=== PATIENT | female | born 1950 | race Caucasian/White ===

== ENCOUNTER 2023-06-16 09:59 | Outpatient (RCR) | payer MEDICARE, OTHER, SELFPAY | END 2023-06-16 23:59 | disposition home or self-care (01) | LOC: RPT 09:59 | PROVIDERS: ATTENDING PHYSICIAN Student in an Organized Health Care Education/Training Program | DX: R42 Dizziness and giddiness (principal) | CPT/HCPCS: 97112; 97163; 97530 ==

== ENCOUNTER 2023-11-26 18:57 | Inpatient (IN) | payer MEDICARE, OTHER, SELFPAY ==
[2023-11-26 11:16] VITALS: BP 136/72
[2023-11-26 11:47] VITALS: BMI 37.0
[2023-11-26 12:20] LABS: % Basophils 0.3 % (0-2); % Eosinophils 0.1 % (0-6); % Immature Granulocytes 0.4 % (0-0.5); % Lymphocytes 9.3 % (20.5-51.1); % Monocytes 10.2 % (1.7-9.3); % Neutrophils 79.7 % (42.2-75.2); Absolute Basophils 0.1 10^3/uL (0-0.2); Absolute Immature Granulocytes 0.1 10^3/uL (0-0.05); Absolute Lymphocytes 1.5 10^3/uL (1.2-3.4); Absolute Monocytes 1.6 10^3/uL (0.1-0.6); Absolute Neutrophils 12.6 10^3/uL (1.4-6.5); Hematocrit 41.5 % (37.0-47.0); Hemoglobin 14.6 g/dL (12.0-16.0); Mean Corp Hgb Conc. 35.2 g/dL (33.0-37.0); Mean Corpuscular Hgb 30.9 pg (27.0-31.0); Mean Corpuscular Volume 87.9 fL (81.0-99.0); Mean Platelet Volume 11.4 fL (7.4-10.4); Nucleated Red Blood Cells % 0 %; Platelet Count 197 10^3/uL (130-400); Red Blood Cell Count 4.72 10^6/uL (4.20-5.40); Red Cell Dist. Width 13.2 % (11.5-14.5); White Blood Cell Count 15.8 10^3/uL (4.8-10.8)
[2023-11-26 12:27] LABS: ALT (SGPT) 25 U/L (0-35); AST (SGOT) 33 U/L (14-36); Albumin 3.9 g/dl (3.5-5.0); Alkaline Phosphatase 84 U/L (38-126); Blood Urea Nitrogen 22 mg/dl (7-17); Calcium 8.9 mg/dl (8.4-10.2); Carbon Dioxide 28 mmol/L (22-30); Chloride 99 mmol/L (98-107); Creatine Phosphokinase 66 U/L (30-135); Estimated Creatinine Clearance 69 ml/min; Glucose 147 mg/dl (70-99); Potassium 4.5 mmol/L (3.5-5.1); Sodium 133 mmol/L (135-145); Total Bilirubin 1.1 mg/dl (0.2-1.3); Total Protein 6.3 g/dl (6.3-8.2); eGFR > 60.00
--- NOTE | 2023-11-26 12:44 | ED.GENMED ---
History of Present Illness
General
Chief Complaint: Urinary Symptoms
Source: patient and records
Exam Limitations: none
Time Seen by Provider: 11/26/23 11:28
Nursing documentation reviewed up to this point in time: agreed with
Travel History
Have you had any contact with someone who has COVID-19?: No
Do you have any symptoms of coronavirus? Fever > 100 degrees, chills, cough, shortness of breath, sore throat, loss of taste or smell, muscle aches, or headache?: No
History of Present Illness
History of Present Illness:
73-year-old female with a past medical history of hypertension, hyperlipidemia, diabetes who presents to the emergency room for evaluation of fever, body aches and cloudy urine. She says that she has a history of frequent UTIs particular for the
past year and is concerned that she could have 1 again. She reports that she noticed that her urine was getting darker and cloudy here a few days ago. Over the past day or 2 she noticed that she started to have fever and achiness. She denies any
dysuria or change in urinary frequency. She denies any incontinence of urine. She does have urgency but this is a chronic issue. She denies any abdominal pain or flank pain. She denies any nausea, vomiting, diarrhea. She denies any URI
symptoms. She denies any cough or shortness of breath, chest pain. She denies any other complaints.
Past History
Past History
ED Past Medical History: HTN, Hypercholesterolemia, NIDDM and Other (kidney stones, fever)
ED Past Surgical History: Gynecological (Hysterectomy ) and Orthopedic (Right knee replacement )
Social History
Tobacco: Former smoker
Alcohol: Occasional
Drug: None
Living: with family
Family History
Family History: Other (no significant)
Review of Systems
Review of Systems
All Other Systems: ROS reviewed and negative except as documented in HPI and ROS
Constitutional: Reports fever, fatigue and chills
EENT: Denies sore throat or runny nose
Respiratory: Denies cough or trouble breathing
Cardiac: Denies chest pain or palpitations
ABD/GI: Denies abdominal pain, nausea, vomiting or diarrhea
: Reports urgency and dark urine; Denies dysuria, frequency, flank pain or incontinence
Musculoskeletal: Denies neck pain or back pain
Neurological: Denies headache, weakness or numbness
Phy Exam
Physical Exam
Physical Exam:
General: Awake, alert; no acute distress
Head: Normocephalic, atraumatic
Eyes: Conjunctiva normal, pupils equal round and reactive to light bilaterally
Throat: Airway intact, handling secretions
Neck: Trachea midline, supple without meningismus
Lungs: Clear to auscultation bilaterally, no wheezing, rales, rhonchi
Heart: Regular rate and rhythm, no murmurs, gallops, or rubs
Abd: Soft, non distended, nontender
Back: No CVA tenderness
Neuro: Cranial nerves grossly intact, speech fluid
Skin: no rash
Extremities: No edema in extremities, equal pulses in all extremities
Scores
Heart Failure Risk
Heart Failure Risk Score: Not Applicable
Heart Score for Chest Pain Patients
STEMI patient?: Not applicable
Withdrawal Assessment of Alcohol
Withdrawal Assessment Completed?: Not applicable
Course
Orders/Labs/Results
Orders:
Orders
11/26/23 11:49
CPK [Creatine Phosphokinase] Urgent
Complete Blood Count/With Diff Urgent
Comprehensive Metabolic Panel Urgent
11/26/23 14:26
Urinalysis Reflex To Culture Urgent
Date Specimen was Collected: 11/26/23
Time Specimen was Collected: 14:24
Urine Microscopic Reflex Cult Urgent
Urine Culture Urgent
ELIS Source: U
Specimen Description:
Date Specimen was Collected: 11/26/23
Time Specimen was Collected: 14:24
11/26/23 15:32
CT Abd/pel Without Iv Or Oral Urgent
Comment:
Reason For Exam: UTI--r/o obstruction
11/26/23 15:38
Lactate Level [Lactic Acid] Urgent
Blood Culture Q30M
ELIS Source: Blood/Venous
Specimen Description:
Blood Culture Q30M
ELIS Source: Blood/Venous
Specimen Description:
11/26/23 16:56
CefTRIAXone [Rocephin] 1,000 mg IV NOW STA
11/26/23 17:12
Acetaminophen [Tylenol] 1,000 mg PO NOW STA
11/26/23 17:19
NSS 500mL Bolus over 1 hr 0.9% Sodium Chloride 500 ml [Nss] 500 ml IV BOLUS
Ondansetron Injectable [Zofran] 4 mg IV NOW STA
Abnormal Lab Results
11/26/23 11/26/23 11/26/23
11:49 14:26 17:02
WBC 15.8 H 10^3/uL
(4.8-10.8)
MPV 11.4 H fL
(7.4-10.4)
Abs Immat Gran (auto) 0.1 H 10^3/uL
(0-0.05)
Absolute Neuts (auto) 12.6 H 10^3/uL
(1.4-6.5)
Absolute Monos (auto) 1.6 H 10^3/uL
(0.1-0.6)
Neutrophils % 79.7 H %
(42.2-75.2)
Lymphocytes % 9.3 L %
(20.5-51.1)
Monocytes % 10.2 H %
(1.7-9.3)
Sodium 133 L mmol/L
(135-145)
BUN 22 H mg/dl
(7-17)
Glucose 147 H mg/dl
(70-99)
Urine Ketones 1+ A
(Negative)
Ur Occult Blood Reflex 3+ A
(Negative)
Urine Nitrite (Reflex) Positive A
(Negative)
Leukocyte Esterase Rfl 2+ A
(Negative)
Urine RBC 7-10 A /HPF
(0-2)
Urine WBC (Reflex) 26-30 A /HPF
(0-5)
Urine Bacteria (Reflex) Many A
(Negative)
POC Glucose 115 H mg/dl
(70-99)
11/26/23 11:49
11/26/23 11:49
Vital Signs
Initial and Last Documented VS:
Initial Vital Signs
Temp Pulse Resp BP Pulse Ox
37.9 C 105 18 136/72 98
11/26/23 11:16 11/26/23 11:16 11/26/23 11:16 11/26/23 11:16 11/26/23 11:16
Last Documented Vital Signs
Temp Pulse Resp BP Pulse Ox
39.2 C H 108 18 134/83 97
11/26/23 17:06 11/26/23 17:06 11/26/23 11:16 11/26/23 17:06 11/26/23 17:06
MDM/Problems Addressed
Differential Diagnosis Includes:
UTI, viral syndrome, pneumonia less likely with clear lungs and normal pulse ox
MDM/Problems Addressed:
73-year-old female with history as above including recurrent UTIs presents for evaluation of dark cloudy urine, fatigue and achiness associated with fever. She is tachycardic with low-grade temp here 37.9 �C. Vital signs otherwise normal.
Physical exam as above. Plan to place an IV check labs including a CBC and a CMP. Will check CPK. Will send a urinalysis. Will reassess after the above.
Patient spiked fever to 102 �F. Will give some Tylenol. Initial labs reviewed she has a leukocytosis to 15.8. Her CMP shows no clinically significant abnormalities. Urinalysis is positive for infection with bacteria and pyuria. She does have
history of sepsis and bacteremia from UTI in the past and she has multiple SIRS criteria concerning for sepsis. Added on lactate and blood cultures. She has no flank pain or back pain but she has a history of septic kidney stone in the past we
will send for a CT in an abundance of caution to rule out stone. I think patient warrants admission for inpatient treatment of her UTI�will treat with IV antibiotics. Case discussed with hospitalist for admission.
*Pulse Oximetry
Patient hypoxic: no
*Critical Care Note
Total Time (30-74mins, 75-104mins- exclusive of procedures): Not Applicable
Data Reviewed
Review of Other/Old Records Reveals: Labs, Records and Other (Prior cultures)
Source: patient and records
Patient Management
Discussion with other providers: Hospitalist (Discussed with hospitalist)
Escalation/DeEscalation of care consider admission/obs:
Admission indicated
ED Attending Note
-
Portions of this chart may have been created with voice recognition software.� Occasional wrong word or��sound alike� substitutions may have occurred due to the inherent limitations of voice recognition software.
Discharge Plan
Departure
Patient Disposition: Admit
Date of Disposition: 11/26/23
Time of Disposition: 17:17
Admit to doctor: Kenny
Presentation/result/management discussed w/ accepting MD/DO: Hospitalist
Discharge Problem:
Acute UTI, Sepsis
Prescriptions:
No Action
aspirin 81 MG tablet,delayed release (DR/EC)
81 mg PO QPM
metformin 500 mg Tablet
500 mg PO BID
duloxetine 30 mg Capsule,Delayed Release(Dr/Ec)
30 mg PO BID
Myrbetriq 50 mg Tablet Extended Release 24 Hr
50 mg PO QPM
multivitamin Tablet
1 tab PO DAILY
ascorbic acid (vitamin C) [Vitamin C] 500 mg Tablet
500 mg PO QPM
Glucosamine Chondroitin 550-30-1 mg Capsule
1 cap PO DAILY
meloxicam 15 mg Tablet
15 mg PO DAILY
melatonin 10 mg Tablet
10 mg PO HS PRN (Reason: sleep)
gabapentin 600 mg Tablet
900 mg PO HS
acetaminophen-codeine 300-30 mg Tablet
1 tab PO HS
Patient Comments:
05/30/2023, patient filled this medication on 03/22/2023 for 60 tablets according to PDMP.
simvastatin 40 mg Tablet
40 mg PO QPM
conjugated estrogens 0.625 mg/gram Cream
0.3125 mg VAGINAL SUTH
cranberry 400 mg Capsule
400 mg PO QPM
calcium carb-magnesium carb,ox 200 mg calcium- 100 mg Tablet,Chewable
1 tab PO QPM
Ozempic 0.25 mg or 0.5 mg (2 mg/3 mL) Pen Injector
0.5 mg SC WE
meclizine 12.5 mg Tablet
12.5 mg PO Q8HPRN PRN (Reason: dizzy) Qty: 15 0RF
lisinopril 10 mg Tablet
5 mg PO DAILY Qty: 0 0RF
Patient Comments:
05/30/2023, patient is unsure if they take this medication in the morning or in the evening. They state that they take this medication 'once a day'.
Rx Instructions:
Take in mornings
Referrals:
Heather oRjas DO [Family Provider] -
Interventions
Interventions:
*Risk Screen - Suicide Last Done: 11/26/23 11:47
*General Assessment Last Done: 11/26/23 11:47
*Neglect/Abuse Screening Last Done: 11/26/23 11:47
ED- Fall Risk Assessment Last Done: 11/26/23 11:47
*ED COVID-19 Vaccine History Last Done: 11/26/23 11:16
ED-Female Genitourinary Assessment Last Done: 11/26/23 11:47
Discharge Date and Time
Print Language: UZBEK
[2023-11-26 15:22] LABS: Urine Albumin Trace (Neg - Trace); Urine Bilirubin Negative (Negative); Urine Character Slightly Cloudy (Clear); Urine Color Yellow; Urine Glucose Negative (Negative); Urine Ketone 1+ (Negative); Urine Leukocyte 2+ (Negative); Urine Nitrite Positive (Negative); Urine Occult Blood 3+ (Negative); Urine Urobilinogen Negative (Neg - 1+)
[2023-11-26 16:08] LABS: Lactic Acid 1.5 mmol/L (0.7-2.0)
[2023-11-26 16:10] LABS: Urine Mucus Few
[2023-11-26 16:11] LABS: Urine Bacteria Many (Negative); Urine White Cell 26-30 /HPF (0-5)
[2023-11-26] MEDS: ROCEPHIN 1000 MG IV (17:03)
[2023-11-26 17:04] LABS: Glucose - Point of Care 115 mg/dl (70-99)
[2023-11-26 17:06] VITALS: BP 134/83
[2023-11-26] MEDS: TYLENOL 1000 MG PO (17:14)
[2023-11-26] MEDS: ZOFRAN 4 MG IV (17:23)
[2023-11-26] MEDS: NSS 500 IV (17:24)
[2023-11-26 17:29] VITALS: BP 126/80
--- NOTE | 2023-11-26 17:57 | HPS.HSE ---
Family Physician
-
Family Physician: Monisha Rojas DO
Chief Complaint
-
urinary symptoms
History of Present Illness
73-year-old female past medical history of frequent UTIs, history of obstructive ureteral stone and R pyelonephritis, hypertension, diabetes, restless leg syndrome, hyperlipidemia, overactive bladder, depression, presenting for fever, fatigue, body
aches and cloudy/dark urine for the past few days. She denied pain with urination or urinary frequency. He denied incontinence. Denies abdominal pain or flank pain. Denied nausea or vomiting or diarrhea. Denies shortness of breath or cough or
chest pain or upper respiratory symptoms.
Medical History
Past Medical History
Past Medical History: Reports Other (frequent UTIs, history of obstructive ureteral stone, hypertension, diabetes, restless leg syndrome, hyperlipidemia, overactive bladder, depression,)
Past Surgical History: Reports Other (Gynecological (Hysterectomy ) and Orthopedic (Right knee replacement ))
Social History
Tobacco: Non-smoker
Alcohol: Occasional
Drug: None
Family History
Family History: Not pertinent
Allergies / Home Medications
Allergies reflects when Allergies were last updated in [facility].
Home Medications with original date entered in [facility]
Allergy/Medication List:
Allergies
Allergy/AdvReac Type Severity Reaction Status Date / Time
morphine Allergy NAUSEA/VOMI Verified 11/26/23 11:17
TING
Home Medications
aspirin 81 mg tablet,delayed release 81 mg PO QPM Blood Clot Prevention/Tx 10/24/18
duloxetine 30 mg capsule,delayed release 30 mg PO BID Mental Health/Anxiety 03/16/23
metformin 500 mg tablet 500 mg PO BID Diabetes 03/16/23
mirabegron 50 mg tablet,extended release 24 hr (Myrbetriq) 50 mg PO QPM Urinary Issue 03/16/23
ascorbic acid (vitamin C) 500 mg tablet (Vitamin C) 500 mg PO QPM 04/04/23
glucosamine sulf dipot chlr,msm,chond 550 mg-C 30 mg-baldo 1 mg capsule (Glucosamine Chondroitin) 1 cap PO QPM 04/04/23
multivitamin 1 tab PO DAILY 04/04/23
melatonin 10 mg tablet 10 mg PO HS PRN sleep 04/10/23
meloxicam 15 mg tablet 15 mg PO DAILY 04/10/23
acetaminophen 300 mg-codeine 30 mg tablet 1 tab PO BID PRN moderate pain 05/30/23
conjugated estrogens 0.625 mg/gram vaginal cream 0.3125 mg vaginal SUTH 05/30/23
gabapentin 600 mg tablet 900 mg PO HS 05/30/23
simvastatin 40 mg tablet 40 mg PO QPM 05/30/23
cranberry fruit 400 mg tablet 400 mg PO QPM 11/26/23
lisinopril 5 mg tablet 5 mg PO DAILY 11/26/23
meclizine 12.5 mg tablet 12.5 mg PO Q8HPRN PRN dizziness 11/26/23
semaglutide 1 mg/dose (4 mg/3 mL) subcutaneous pen injector (Ozempic) 1 mg SC FR 11/26/23
Review of Systems
-
History Source: Patient
A 12 point ROS was completed and negative except as noted: Yes
Constitutional: Reports No Symptoms
EENT: Reports No Symptoms
Respiratory: Reports No Symptoms
Cardiac: Reports No Symptoms
Abdomen/GI: Reports No Symptoms
: Reports See HPI
Musculoskeletal: Reports No Symptoms
Skin: Reports No Symptoms
Neurological: Reports No Symptoms
Endocrine: Reports No Symptoms
Hematologic/Lymphatic: Reports No Symptoms
Psych: Reports No Symptoms
Physical Exam
Vital Signs
Vital Signs
Temp Pulse Resp BP Pulse Ox
102.5 F H 108 22 126/80 97
11/26/23 17:06 11/26/23 17:30 11/26/23 17:30 11/26/23 17:29 11/26/23 17:06
Physical Exam
General: Well Developed, Well Nourished and No Apparent Distress
HEENT: NormoCephalic, Moist mucous membranes and Atraumatic
Respiratory: Clear
Cardiac: S1/S2 and Regular Rhythm; No Murmur or Rub
GI: Soft, Non Tender, Non Distended and Normal Bowel Sounds; No Organomegaly
Rectal: Deferred by Provider
Musculoskeletal: No Clubbing, No Cyanosis and No Edema
Skin: No Rash
Neuro: Nonfocal/grossly intact
Laboratory Results
-
11/26/23 11:49
11/26/23 11:49
Laboratory Results
Lactic Acid 1.5 mmol/L (0.7-2.0) 11/26/23 15:38
Total Bilirubin 1.1 mg/dl (0.2-1.3) 11/26/23 11:49
AST 33 U/L (14-36) 11/26/23 11:49
ALT 25 U/L (0-35) 11/26/23 11:49
Alkaline Phosphatase 84 U/L (38-126) 11/26/23 11:49
Data Reviewed
-
Lab Data: Labs Reviewed by me
Old Records: Reviewed
Impression/Plan
-
IMPRESSION:
PLAN:
# Sepsis (fever, leukocytosis, tachycardia) secondary to UTI
# History of frequent UTIs
-UA positive for UTI
-Check urine, blood cultures
-Prior urine cultures have grew Klebsiella multiple times which has been pansensitive except to ampicillin, as well as Enterococcus once
-IV fluids
-Ceftriaxone
-CT abdomen pelvis pending given history of obstructive ureteral stone
History of right-sided pyelonephritis secondary to obstructive ureteral stone
Overactive bladder
-Continue Myrbetriq
Essential hypertension
-Continue lisinopril
-Continue prophylactic aspirin
History of dizziness/orthostatic hypotension
-Continue as needed meclizine
Restless leg syndrome
History of arthralgias
-Continue meloxicam, gabapentin
Type 2 diabetes
-Hold metformin
-Insulin sliding scale
-Normally on Ozempic
Hyperlipidemia
-Continue statin
Anxiety/depression
-Continue duloxetine
Full code
DVT prophylaxis- heparin
Regular diet
--- NOTE | 2023-11-26 20:00 | PTCARENOTE ---
Received pt from ED- stand and pivot to bed- pt complaints of being dizzy- See MAR. No complaints of pain
[2023-11-26 21:19] VITALS: BP 174/102; BMI 36.1
[2023-11-26 21:27] LABS: Glucose - Point of Care 203 mg/dl (70-99)
[2023-11-26] MEDS: HEPARIN 5000 UNITS SC (21:57)
[2023-11-26] MEDS: CYMBALTA DELAYED RELEASE 30 MG PO (21:57)
[2023-11-26] MEDS: NSS 1000 IV (21:57)
[2023-11-26] MEDS: ASPIR LOW (ENTERIC COATED) 81 MG PO (21:57)
[2023-11-26] MEDS: DETROL LA 4 MG PO (21:58)
[2023-11-26] MEDS: NEURONTIN 900 MG PO (21:58)
[2023-11-26] MEDS: MELATONIN 10 MG PO (21:58)
[2023-11-26] MEDS: VITAMIN C 500 MG PO (21:58)
[2023-11-26] MEDS: LIPITOR 20 MG PO (21:58)
[2023-11-26] MEDS: ANTIVERT 12.5 MG PO (21:58)
[2023-11-26 23:30] VITALS: BP 129/70
[2023-11-27] VITALS (11 sets, daily range): BP systolic 84–162; BP diastolic 44–83
[2023-11-27] MEDS: NSS 1000 IV ×2 (05:57→17:49)
[2023-11-27] MEDS: TYLENOL 650 MG PO ×2 (06:17→21:24)
[2023-11-27] MEDS: ANTIVERT 12.5 MG PO ×2 (06:17→21:23)
[2023-11-27 07:34] LABS: % Basophils 0.2 % (0-2); % Eosinophils 0.5 % (0-6); % Immature Granulocytes 0.5 % (0-0.5); % Lymphocytes 8.7 % (20.5-51.1); % Neutrophils 80.1 % (42.2-75.2); Absolute Eosinophils 0.1 10^3/uL (0-0.7); Absolute Immature Granulocytes 0.1 10^3/uL (0-0.05); Absolute Lymphocytes 1.1 10^3/uL (1.2-3.4); Absolute Monocytes 1.3 10^3/uL (0.1-0.6); Absolute Neutrophils 10.4 10^3/uL (1.4-6.5); Hematocrit 39.8 % (37.0-47.0); Hemoglobin 12.8 g/dL (12.0-16.0); Mean Corp Hgb Conc. 32.2 g/dL (33.0-37.0); Mean Corpuscular Hgb 29.5 pg (27.0-31.0); Mean Corpuscular Volume 91.7 fL (81.0-99.0); Mean Platelet Volume 11.2 fL (7.4-10.4); Nucleated Red Blood Cells % 0 %; Platelet Count 145 10^3/uL (130-400); Red Blood Cell Count 4.34 10^6/uL (4.20-5.40); Red Cell Dist. Width 13.1 % (11.5-14.5)
[2023-11-27 08:00] LABS: ALT (SGPT) 19 U/L (0-35); AST (SGOT) 26 U/L (14-36); Albumin 3.3 g/dl (3.5-5.0); Alkaline Phosphatase 83 U/L (38-126); Blood Urea Nitrogen 16 mg/dl (7-17); Calcium 8.6 mg/dl (8.4-10.2); Carbon Dioxide 26 mmol/L (22-30); Chloride 103 mmol/L (98-107); Estimated Creatinine Clearance 78 ml/min; Glucose 125 mg/dl (70-99); Potassium 4.2 mmol/L (3.5-5.1); Sodium 135 mmol/L (135-145); Total Bilirubin 0.9 mg/dl (0.2-1.3); Total Protein 5.6 g/dl (6.3-8.2); eGFR > 60.00
[2023-11-27 08:02] LABS: Glucose - Point of Care 132 mg/dl (70-99)
[2023-11-27] MEDS: NOVOLOG FLEXPEN-LOW RESISTANCE SC ×2 (08:06→11:42)
[2023-11-27] MEDS: ZESTRIL 5 MG PO (08:13)
[2023-11-27] MEDS: CYMBALTA DELAYED RELEASE 30 MG PO ×2 (08:13→21:22)
[2023-11-27] MEDS: MOBIC 15 MG PO (08:14)
[2023-11-27] MEDS: HEPARIN 5000 UNITS SC ×2 (08:14→21:23)
[2023-11-27] MEDS: THERAGRAN 1 TABLET PO (08:14)
[2023-11-27 09:01] LABS: Glycohemoglobin (HgbA1c) 5.9 % (4.0-5.6)
--- NOTE | 2023-11-27 10:18 | W.PN.HOSP.TC ---
Today's Communication/Plan
-
Continue present course of ceftriaxone
Await blood culture results for now ID
Will get urology input as to CT scan findings as prior obstructive process on the right underwent lithotripsy last year
Continue to monitor leukocytosis
Assessment / Plan
Assessment / Plan
73-year-old female past medical history of frequent UTIs, history of obstructive ureteral stone and R pyelonephritis, hypertension, diabetes, restless leg syndrome, hyperlipidemia, overactive bladder, depression, presenting for fever, fatigue, body
aches and cloudy/dark urine for the past few days. She denied pain with urination or urinary frequency. He denied incontinence. Denies abdominal pain or flank pain. Denied nausea or vomiting or diarrhea. Denies shortness of breath or cough or
chest pain or upper respiratory symptoms.
Past Medical History: Reports Other (frequent UTIs, history of obstructive ureteral stone, hypertension, diabetes, restless leg syndrome, hyperlipidemia, overactive bladder, depression,)
# Sepsis (fever, leukocytosis, tachycardia) secondary to UTI
# History of frequent UTIs
-UA positive for UTI
-Check urine, blood cultures preliminary may be positive
-Prior urine cultures have grew Klebsiella multiple times which has been pansensitive except to ampicillin, as well as Enterococcus once
-IV fluids
-Ceftriaxone
-CT abdomen pelvis :
Approximate 1.3 cm
calculus at the left ureteropelvic junction with mild left renal collecting system dilatation and moderate left perinephric stranding compatible with partial obstructive uropathy. Additional small nonobstructing left renal calculi.
-Prelim results on blood cultures indicate positivity
History of right-sided pyelonephritis secondary to obstructive ureteral stone
Overactive bladder
-Continue Myrbetriq
Essential hypertension
-Continue lisinopril
-Continue prophylactic aspirin
History of dizziness/orthostatic hypotension
-Continue as needed meclizine
Restless leg syndrome
History of arthralgias
-Continue meloxicam, gabapentin
Type 2 diabetes
-Hold metformin
-Insulin sliding scale
-Normally on Ozempic
Hyperlipidemia
-Continue statin
Anxiety/depression
-Continue duloxetine
Full code
DVT prophylaxis- heparin
Regular diet
Anticipated Discharge: Within 24 hours
Subjective/Interval History
-
Date of Service: November 27, 2023
Patient feels well denies any fever chills or flank pain
Objective Data
-
Labs:
Laboratory Results
11/27/23
06:22
WBC 13.0 H
Hgb 12.8
Hct 39.8
Plt Count 145 D
Sodium 135
Potassium 4.2
Chloride 103
Carbon Dioxide 26
BUN 16
Creatinine 0.7
Glucose 125 H
Calcium 8.6
Total Bilirubin 0.9
AST 26
ALT 19
Alkaline Phosphatase 83
Vital Signs:
Vital Signs
Temp Pulse Resp BP Pulse Ox
98.1 F 97 16 132/73 93
11/27/23 07:30 11/27/23 07:30 11/27/23 07:30 11/27/23 07:30 11/27/23 07:30
I&O
11/26/23 11/27/23 11/28/23
06:59 06:59 06:59
Intake Total 480 / 480
Balance 480 / 480
Review of Systems
-
History Source: Patient
Physical Exam
-
General: Well Developed
HEENT: Normocephalic
Respiratory: Clear to Auscultation
Cardiac: Regular Rhythm
GI: Soft and Nontender
Genito-urinary: No Costovertebral Tender
Musculoskeletal: No Clubbing
Psych: Calm
Data Reviewed
-
Total Time Spent with Patient (in minutes): 45
CT Scan: Report Reviewed by me (CT scan results show some perinephric stranding on the left side with a 1.3 cm ureteropelvic junction stone with some hydro-)
Labs: Labs Reviewed by me (Leukocytosis trending down to 13/A1c of 5.9)
[2023-11-27 11:44] LABS: Glucose - Point of Care 205 mg/dl (70-99)
--- NOTE | 2023-11-27 11:44 | W.PN.UPDATE ---
Update Note
Progress Note Update
73F presenting to ED 11/25 with body aches and cloudy urine.
11/25: UA grossly positive for UTI (+nitrites, 26-30 WBCs)
11/25: BCx - prelim positive.
11/25: CTAP w/o IV contrast => 1.3 cm obstructing left UPJ stone w/ non-obstructing left renal stones, left hydronephrosis and perinephric stranding
H/o right ESWL in past for kidney stones.
A/P:
cUTI
Bacteremia
Obstructing left UPJ stone
- Maintain NPO status
- To OR urgently today for cysto + left stent placement
- Continue IV antibiotics pending Cx S/S
D/w Hospitalist.
--- NOTE | 2023-11-27 12:38 | W.IMMPOSTOP ---
Surgical Immed Post Op Note
-
Primary Surgeon: Pascale
Pre-op Diagnosis: cUTI, bacteremia, obstructing left UPJ stone
Post-op Diagnosis: Same
Procedure Performed: cysto + left stent placement
Anesthesia Type: GETA
Specimen / Cultures: None/None
Estimated Blood Loss: Negligible
Drains: 6Fr x 24 cm JJ left ureteral stent
Complications: None
Operative Findings: purulent debris-filled urine in bladder c/w UTI, final KUB and cysto confirming appropriate left stent position
[2023-11-27 12:54] LABS: Glucose - Point of Care 156 mg/dl (70-99)
[2023-11-27] MEDS: DILAUDID 0.25 MG IV (13:39)
--- NOTE | 2023-11-27 14:30 | PTCARENOTE ---
Pt returned from OR. Report from Josefa OWEN. Pt awake, alert and oriented x3. Pt has no c/o pain at this time, received Dilaudid in PACU. Pt VSS 95% on RA. Pt reoriented to room, urinated in bathroom, call gross within reach, plan of care ongoing.
[2023-11-27] MEDS: ROCEPHIN 1000 MG IV (16:23)
[2023-11-27] MEDS: STERILE WATER FOR INJECTION 10 ML IV (16:23)
[2023-11-27 17:20] LABS: Glucose - Point of Care 257 mg/dl (70-99)
[2023-11-27] MEDS: ASPIR LOW (ENTERIC COATED) 81 MG PO (17:38)
[2023-11-27] MEDS: LIPITOR 20 MG PO (17:38)
[2023-11-27] MEDS: DETROL LA 4 MG PO (17:39)
[2023-11-27] MEDS: NOVOLOG FLEXPEN-LOW RESISTANCE 3 UNITS SC (17:39)
[2023-11-27] MEDS: VITAMIN C 500 MG PO (17:39)
[2023-11-27] MEDS: MELATONIN 10 MG PO (21:23)
[2023-11-27] MEDS: NEURONTIN 900 MG PO (21:23)
[2023-11-27 21:26] LABS: Glucose - Point of Care 302 mg/dl (70-99)
[2023-11-27] MEDS: PREMARIN VAGINAL CREAM 1 APPLIC VAG (21:28)
[2023-11-28 03:23] VITALS: BP 141/79
[2023-11-28] MEDS: NSS 1000 IV (03:46)
[2023-11-28 05:31] LABS: Hematocrit 37.5 % (37.0-47.0); Hemoglobin 12.7 g/dL (12.0-16.0); Mean Corp Hgb Conc. 33.9 g/dL (33.0-37.0); Mean Corpuscular Hgb 30.2 pg (27.0-31.0); Mean Corpuscular Volume 89.1 fL (81.0-99.0); Mean Platelet Volume 11.2 fL (7.4-10.4); Platelet Count 174 10^3/uL (130-400); Red Blood Cell Count 4.21 10^6/uL (4.20-5.40); Red Cell Dist. Width 12.8 % (11.5-14.5); White Blood Cell Count 10.8 10^3/uL (4.8-10.8)
[2023-11-28 06:12] LABS: Blood Urea Nitrogen 19 mg/dl (7-17); Calcium 9.2 mg/dl (8.4-10.2); Carbon Dioxide 22 mmol/L (22-30); Chloride 109 mmol/L (98-107); Estimated Creatinine Clearance 78 ml/min; Glucose 250 mg/dl (70-99); Potassium 4.7 mmol/L (3.5-5.1); Sodium 137 mmol/L (135-145); eGFR > 60.00
[2023-11-28 07:35] VITALS: BP 159/92
[2023-11-28 07:35] LABS: Glucose - Point of Care 221 mg/dl (70-99)
[2023-11-28] MEDS: CYMBALTA DELAYED RELEASE 30 MG PO (08:11)
[2023-11-28] MEDS: ZESTRIL 5 MG PO (08:12)
[2023-11-28] MEDS: THERAGRAN 1 TABLET PO (08:12)
[2023-11-28] MEDS: MOBIC 15 MG PO (08:12)
[2023-11-28] MEDS: HEPARIN 5000 UNITS SC (08:13)
[2023-11-28] MEDS: NOVOLOG FLEXPEN-LOW RESISTANCE 2 UNITS SC (08:15)
[2023-11-28] MEDS: TYLENOL 650 MG PO (08:28)
--- NOTE | 2023-11-28 09:53 | W.DS.TRANS ---
DC Summary - Club Attendant
-
Discharge Instructions:
Discharge Diagnosis/Procedures Complicated urinary tract infection
Obstructing left UPJ stone
Status post ureteroscopic and stent
Diet Regular
Activity As tolerated
Driving Restrictions As prior to admission
Instructions:
Stand-Alone Forms:
Changes to Home Medications: Yes
Discharge Medications:
DC Medications w/original date entered in [employer]
aspirin 81 mg tablet,delayed release 81 mg PO QPM Blood Clot Prevention/Tx 10/24/18
duloxetine 30 mg capsule,delayed release 30 mg PO BID Mental Health/Anxiety 03/16/23
metformin 500 mg tablet 500 mg PO BID Diabetes 03/16/23
mirabegron 50 mg tablet,extended release 24 hr (Myrbetriq) 50 mg PO QPM Urinary Issue 03/16/23
ascorbic acid (vitamin C) 500 mg tablet (Vitamin C) 500 mg PO QPM Supplement 04/04/23
glucosamine sulf dipot chlr,msm,chond 550 mg-C 30 mg-baldo 1 mg capsule (Glucosamine Chondroitin) 1 cap PO QPM Supplement 04/04/23
multivitamin 1 tab PO DAILY Supplement 04/04/23
melatonin 10 mg tablet 10 mg PO HS PRN sleep 04/10/23
meloxicam 15 mg tablet 15 mg PO DAILY Pain 04/10/23
acetaminophen 300 mg-codeine 30 mg tablet 1 tab PO BID PRN moderate pain 05/30/23
conjugated estrogens 0.625 mg/gram vaginal cream 0.3125 mg vaginal SUTH Hormonal Agent 05/30/23
gabapentin 600 mg tablet 900 mg PO HS Neurological Condition 05/30/23
simvastatin 40 mg tablet 40 mg PO QPM High Cholesterol 05/30/23
cranberry fruit 400 mg tablet 400 mg PO QPM Supplement 11/26/23
lisinopril 5 mg tablet 5 mg PO DAILY Blood Pressure 11/26/23
meclizine 12.5 mg tablet 12.5 mg PO Q8HPRN PRN dizziness 11/26/23
semaglutide 1 mg/dose (4 mg/3 mL) subcutaneous pen injector (Ozempic) 1 mg SC FR weight loss 11/26/23
cefdinir 300 mg capsule 300 mg PO BID Infection #14 caps 11/28/23
Home Medication Changes
cefdinir 300 mg capsule 300 mg PO BID Infection #14 caps 11/28/23
Pending Results: No
Total time spent discharging patient (in min): 46
[2023-11-28 11:09] VITALS: BP 158/97
--- NOTE | 2023-11-28 11:59 | W.DCSUMMARY ---
Discharge Summary
Discharge Data
Date of Admission: 11/26/23
Date of Discharge: 11/28/23
-
Pending Results: No
Hospital Course
73-year-old female past medical history of frequent UTIs, history of obstructive ureteral stone and R pyelonephritis, she underwent lithotripsy successfully last year and was seen and followed by Dr. Loera on the urology group. Hypertension,
diabetes, restless leg syndrome, hyperlipidemia, overactive bladder, depression, presenting for fever, fatigue, body aches and cloudy/dark urine for the past few days. She denied pain with urination or urinary frequency. He denied incontinence.
Denies abdominal pain or flank pain. Denied nausea or vomiting or diarrhea. Denies shortness of breath or cough or chest pain or upper respiratory symptoms.
Patient was admitted to [facility] and results of his CT imaging exhibiting a approximate 1.3 cm calculus at the left ureteropelvic junction with mild left renal collecting system dilatation and moderate left perinephric stranding compatible with
partial obstructive uropathy. Additional small nonobstructing left renal calculi. She was started on an empiric course of antibiotics at time of admission with cultures of urine and blood sent.
A consultation was placed with the urology service of Dr. Ashraf who felt that the patient should be taken immediately to the OR intervention for relieving her obstructive uropathy with stenting/this was uncomplicated and while awaiting blood
culture results which initially showed suspicion of positive growth patient was observed overnight and did well with resolution of leukocytosis no febrile course and no further abdominal pain. She was continued on ceftriaxone and we obtained final
culture results of noting high suspicion for contaminant of one of the 2 blood cultures and with the other 1 being negative is felt that patient's blood cultures are negative for growth but will be continued to be treated for a complicated urinary
tract infection based on her obstructive uropathy presentation with cefdinir 300 mg twice a day and further follow-up with Dr. Correia in 1 to 2 weeks for preoperative intervention for addressing her stent
Discharge Plan
-
Patient Disposition: Home (Routine Discharge)
Discharge Diagnosis/Procedures: Complicated urinary tract infection
Obstructing left UPJ stone
Status post ureteroscopic and stent
Diet: Regular
Activity: As tolerated
Driving Restrictions: As prior to admission
Referrals:
Robert Ashraf MD [Active] - in less than 1 week (Call for follow-up appointment and stent status)
Patrice Navarro MD [Emergency Provider] - in one to two weeks (Followup with DR Evaristo cao)
Heather Rojas DO [Family Provider] -
Prescriptions:
New
cefdinir 300 mg capsule
300 mg PO BID Qty: 14 0RF
Continued
aspirin 81 MG tablet,delayed release (DR/EC)
81 mg PO QPM
metformin 500 mg Tablet
500 mg PO BID
duloxetine 30 mg Capsule,Delayed Release(Dr/Ec)
30 mg PO BID
mirabegron [Myrbetriq] 50 mg Tablet Extended Release 24 Hr
50 mg PO QPM
multivitamin Tablet
1 tab PO DAILY
ascorbic acid (vitamin C) [Vitamin C] 500 mg Tablet
500 mg PO QPM
Glucosamine Chondroitin 550-30-1 mg Capsule
1 cap PO QPM
meloxicam 15 mg Tablet
15 mg PO DAILY
melatonin 10 mg Tablet
10 mg PO HS PRN (Reason: sleep)
gabapentin 600 mg Tablet
900 mg PO HS
acetaminophen-codeine 300-30 mg Tablet
1 tab PO BID PRN (Reason: moderate pain)
Patient Comments:
11/26/2023: last filled 11/19/23, 60 tabs for 30 days from [facility]
simvastatin 40 mg Tablet
40 mg PO QPM
conjugated estrogens 0.625 mg/gram Cream
0.3125 mg VAGINAL SUTH
lisinopril 5 mg tablet
5 mg PO DAILY
cranberry fruit 400 mg Tablet
400 mg PO QPM
Ozempic 1 mg/dose (4 mg/3 mL) pen injector
1 mg SC FR
meclizine 12.5 mg tablet
12.5 mg PO Q8HPRN PRN (Reason: dizziness)
Discharge Orders:
Discharge Patient (As Directed); Ordered 11/28/23
Ordered By: Roni Delgadillo
Discharge Date and Time
Discharge Date/Time: 11/28/23 11:36
Print Language: PORTUGUESE
== END 2023-11-28 11:36 | disposition home or self-care (01) | DRG 660 ==
LOC: 4 EAST ACU 18:57
PROVIDERS: Surgery; ADMITTING PHYSICIAN Hospitalist; ATTENDING PHYSICIAN Internal Medicine; EMERGENCY PHYSICIAN Emergency Medicine; FAMILY PHYSICIAN Student in an Organized Health Care Education/Training Program
PROC: 0T778DZ Dilation of Left Ureter with Intraluminal Device, Via Natural or Artificial Opening Endoscopic (ICD-10-PCS; 2023-11-27)
DX: N11.1 Chronic obstructive pyelonephritis (principal); N39.0 Urinary tract infection, site not specified; N20.2 Calculus of kidney with calculus of ureter
CPT/HCPCS: 74018; 74176; 76000; 80048; 80053; 81003; 81015; 82550; 82962; 83036; 83605; 85025; 85027; 87040; 87086; 87150; 87205; 96361; 96374; 96375; 99285; C2617

== ENCOUNTER 2023-12-01 22:20 | Inpatient (IN) | payer MEDICARE, OTHER, SELFPAY ==
[2023-12-01 11:35] VITALS: BMI 33.9
[2023-12-01 11:42] VITALS: BP 147/95
[2023-12-01 12:19] LABS: % Basophils 0.5 % (0-2); % Eosinophils 1.9 % (0-6); % Immature Granulocytes 0.6 % (0-0.5); % Lymphocytes 15.6 % (20.5-51.1); % Monocytes 7.2 % (1.7-9.3); % Neutrophils 74.2 % (42.2-75.2); Absolute Eosinophils 0.2 10^3/uL (0-0.7); Absolute Immature Granulocytes 0.1 10^3/uL (0-0.05); Absolute Lymphocytes 1.3 10^3/uL (1.2-3.4); Absolute Monocytes 0.6 10^3/uL (0.1-0.6); Absolute Neutrophils 6.2 10^3/uL (1.4-6.5); Hematocrit 43.6 % (37.0-47.0); Hemoglobin 15.1 g/dL (12.0-16.0); Mean Corp Hgb Conc. 34.6 g/dL (33.0-37.0); Mean Corpuscular Hgb 29.9 pg (27.0-31.0); Mean Corpuscular Volume 86.3 fL (81.0-99.0); Mean Platelet Volume 10.9 fL (7.4-10.4); Nucleated Red Blood Cells % 0 %; Platelet Count 264 10^3/uL (130-400); Red Blood Cell Count 5.05 10^6/uL (4.20-5.40); Red Cell Dist. Width 12.7 % (11.5-14.5); White Blood Cell Count 8.4 10^3/uL (4.8-10.8)
[2023-12-01 12:21] LABS: Urine Albumin 1+ (Neg - Trace); Urine Bilirubin Negative (Negative); Urine Character Slightly Cloudy (Clear); Urine Color Yellow; Urine Glucose Negative (Negative); Urine Ketone 1+ (Negative); Urine Leukocyte 2+ (Negative); Urine Nitrite Negative (Negative); Urine Occult Blood 4+ (Negative); Urine Specific Gravity 1.015 (<1.030); Urine Urobilinogen Negative (Neg - 1+)
[2023-12-01 12:35] LABS: ALT (SGPT) 74 U/L (0-35); AST (SGOT) 88 U/L (14-36); Albumin 4.3 g/dl (3.5-5.0); Alkaline Phosphatase 96 U/L (38-126); Blood Urea Nitrogen 19 mg/dl (7-17); Calcium 10.3 mg/dl (8.4-10.2); Carbon Dioxide 26 mmol/L (22-30); Chloride 101 mmol/L (98-107); Glucose 180 mg/dl (70-99); Potassium 4.5 mmol/L (3.5-5.1); Sodium 137 mmol/L (135-145); Total Bilirubin 0.6 mg/dl (0.2-1.3); Total Protein 6.9 g/dl (6.3-8.2); eGFR > 60.00
[2023-12-01 12:43] LABS: Lactic Acid 1.7 mmol/L (0.7-2.0)
[2023-12-01 13:46] LABS: Urine Bacteria Moderate (Negative); Urine Red Blood Cell 30-40 /HPF (0-2); Urine Squamous Cell >30 /LPF (Few); Urine White Cell 26-30 /HPF (0-5); Urine Yeast Few (Negative)
[2023-12-01 15:32] VITALS: BP 188/97
--- NOTE | 2023-12-01 18:41 | ED.GENMED ---
History of Present Illness
General
Chief Complaint: Weakness
Time Seen by Provider: 12/01/23 18:30
Travel History
Have you had any contact with someone who has COVID-19?: No
Do you have any symptoms of coronavirus? Fever > 100 degrees, chills, cough, shortness of breath, sore throat, loss of taste or smell, muscle aches, or headache?: No
History of Present Illness
History of Present Illness:
Patient is a 73-year-old female with past medical history of hypertension, hyperlipidemia, vertigo, diverticulosis/diverticulitis, thyroid disorder with history of partial thyroidectomy, cataracts, history of hysterectomy, and histroy of frequent
UTIs/history of kidney stones, here today for evaluation of fatigue.
Patient was initially seen on 11/26/2023 for fever, fatigue, body aches, and cloudy/dark urine. Patient underwent CT imaging which revealed a 1.3 cm calculus at the left UVJ with mild left renal collecting system dilatation and moderate left
perinephric stranding compatible with a partial obstructive uropathy. Patient was started on antibiotics. Cultures were sent. Case was discussed with urology and patient was taken for OR intervention for relieving of obstructive uropathy with
stenting along the left side with cystoscopy with Dr. Ashraf. Patient was continued on antibiotics and blood cultures were found to be positive in 1/2 which was thought to be secondary to a contaminant. Urine culture revealed positive for greater
than 100,000 mixed davida. Laboratory stated probable contamination. Patient was ultimately discharged as symptoms improved and was discharged with p.o. cefdinir.
Patient reports feeling generally well at the time of discharge until more recently over the past 2 days she has had increasing fatigue associated with loss of appetite and lightheadedness. She denies abdominal or back pain. No fevers. No pain
with urination. She has more recently noted hematuria. Patient has been taking the antibiotics as directed. No vomiting.
Past History
Past History
ED Past Medical History: HTN, Hypercholesterolemia, NIDDM and Other (kidney stones, fever)
ED Past Surgical History: Gynecological (Hysterectomy ) and Orthopedic (Right knee replacement )
Social History
Tobacco: Former smoker
Alcohol: Occasional
Drug: None
Living: with family
Family History
Family History: Other (no significant)
Review of Systems
Review of Systems
All Other Systems: ROS reviewed and negative except as documented in HPI and ROS
Phy Exam
Physical Exam
Physical Exam:
GENERAL: Alert , in no apparent distress
EYE: pupils equal and reactive
NECK: Supple, no significant adenopathy.
ENT: o/p clr, mmm.
CARDIAC: Regular rate and rhythm .
LUNGS: Clear breath sounds bilaterally, no acute respiratory distress, no wheezes/rales/rhonchi
ABDOMEN: Soft, without focal tenderness, no r/g, no cvat
NEUROLOGICAL: Alert and oriented, no focal neuro deficits
SKIN: Warm and dry, skin intact.
MUSCULOSKELETAL: No edema, well perfused.
PSYCH: Normal and appropriate interaction.
Course
Orders/Labs/Results
Orders:
Orders
12/01/23 12:07
Complete Blood Count/With Diff Urgent
Comprehensive Metabolic Panel Urgent
Lactic Acid Urgent
Urinalysis Reflex To Culture Urgent
Date Specimen was Collected: 12/01/23
Time Specimen was Collected: 11:45
Urine Microscopic Reflex Cult Urgent
Blood Culture Urgent
ELIS Source: Blood/Venous
Specimen Description:
Urine Culture Urgent
ELIS Source: U
Specimen Description:
Date Specimen was Collected: 12/01/23
Time Specimen was Collected: 11:45
12/01/23 20:33
Gentamicin Sulfate [Gentamicin] 200 mg 0.9% Sodium Chloride [Nss] 50 ml IV NOW
12/01/23 21:27
Admit/Transfer Patient As Directed
Co-Sign Provider:
Level of Care: Inpatient admission
Assign to:: Medical/Surgical
Physician / Group: stella
Diagnosis: persistent uti
Reason for Hospitalization: persistent uti
Expected length of stay greater than two midnights?: Yes
ELOS- Estimated Length of Stay in days: 2
I certify the patient meets the requirements for IP care: Yes
12/01/23 21:28
Code Status As Directed
Resuscitation Status: Full Code
12/01/23 22:00
LevoFLOXacin 500 MG/100 ML [Levaquin] 500 mg in 100 ml IV Q24H
Abnormal Lab Results
12/01/23
12:07
MPV 10.9 H fL
(7.4-10.4)
Abs Immat Gran (auto) 0.1 H 10^3/uL
(0-0.05)
Immature Gran % 0.6 H %
(0-0.5)
Lymphocytes % 15.6 L %
(20.5-51.1)
BUN 19 H mg/dl
(7-17)
Glucose 180 H mg/dl
(70-99)
Calcium 10.3 H mg/dl
(8.4-10.2)
AST 88 H U/L
(14-36)
ALT 74 H U/L
(0-35)
Urine Ketones 1+ A
(Negative)
Ur Occult Blood Reflex 4+ A
(Negative)
Leukocyte Esterase Rfl 2+ A
(Negative)
Urine RBC 30-40 A /HPF
(0-2)
Urine WBC (Reflex) 26-30 A /HPF
(0-5)
Urine Bacteria (Reflex) Moderate A
(Negative)
Urine Yeast Few A
(Negative)
Urine Albumin (Reflex) 1+ A
(Neg - Trace)
12/01/23 12:07
12/01/23 12:07
Vital Signs
Initial and Last Documented VS:
Initial Vital Signs
Temp Pulse Resp BP Pulse Ox
98.3 F 120 16 147/95 98
12/01/23 11:42 12/01/23 11:42 12/01/23 11:42 12/01/23 11:42 12/01/23 11:42
Last Documented Vital Signs
Temp Pulse Resp BP Pulse Ox
97.9 F 76 19 141/89 97
12/01/23 15:32 12/01/23 19:51 12/01/23 19:51 12/01/23 21:00 12/01/23 21:01
MDM/Problems Addressed
Differential Diagnosis Includes:
Patient is a 73-year-old female with past medical history of hypertension, hyperlipidemia, vertigo, diverticulosis/diverticulitis, thyroid disorder with history of partial thyroidectomy, cataracts, history of hysterectomy, and histroy of frequent
UTIs/history of kidney stones, here today for evaluation of fatigue. Overall, patient appears very well. She is moderately hypertensive. Physical examination described above. Will begin with screening labs. Will obtain urinalysis.
12/01/2023 21:20: Screening labs reveal no leukocytosis. BUN 19/creatinine 0.7. Normal lactic acid. Mild transaminitis. Calcium 10.3. Glucose 180. Urinalysis with 1+ ketones, 4+ blood, 2+ leukocyte esterase, 30-40 RBCs, and 26-30 WBCs. There
is squamous epithelial cells noted. Case was discussed with urology, Dr. Lazo. He recommends admission to the hospital with IV antibiotics. Dr. Lazo recommends IV levofloxacin as well as 1 single dose of gentamicin. Recommends n.p.o.
after midnight for potential operative intervention. Patient will be admitted to medicine for further evaluation/treatment and monitoring. All questions answered. Stable for admission
*Critical Care Note
Total Time (30-74mins, 75-104mins- exclusive of procedures): Not Applicable
ED Attending Note
-
Portions of this chart may have been created with voice recognition software.� Occasional wrong word or��sound alike� substitutions may have occurred due to the inherent limitations of voice recognition software.
Discharge Plan
Departure
Patient Disposition: Admit
Date of Disposition: 12/01/23
Time of Disposition: 21:18
Admit to: Med/Surg
Admit to doctor: Brady Johnston
Presentation/result/management discussed w/ accepting MD/DO: Hospitalist
Patient with high blood pressure during this ER visit?: Yes
Condition: Fair
Covid-19: Not Applicable
Discharge Problem:
Urinary tract infection
Prescriptions:
No Action
aspirin 81 MG tablet,delayed release (DR/EC)
81 mg PO QPM
metformin 500 mg Tablet
500 mg PO BID
duloxetine 30 mg Capsule,Delayed Release(Dr/Ec)
30 mg PO BID
mirabegron [Myrbetriq] 50 mg Tablet Extended Release 24 Hr
50 mg PO QPM
multivitamin Tablet
1 tab PO DAILY
ascorbic acid (vitamin C) [Vitamin C] 500 mg Tablet
500 mg PO QPM
Glucosamine Chondroitin 550-30-1 mg Capsule
1 cap PO QPM
meloxicam 15 mg Tablet
15 mg PO DAILY
melatonin 10 mg Tablet
10 mg PO HS PRN (Reason: sleep)
gabapentin 600 mg Tablet
900 mg PO HS
acetaminophen-codeine 300-30 mg Tablet
1 tab PO BIDPRN PRN (Reason: moderate pain)
Patient Comments:
12/01/23: last filled 11/19/23, 60 tabs for 30 days from [facility]
simvastatin 40 mg Tablet
40 mg PO QPM
lisinopril 5 mg tablet
5 mg PO DAILY
cranberry fruit 400 mg Tablet
400 mg PO QPM
Ozempic 1 mg/dose (4 mg/3 mL) pen injector
1 mg SC FR
meclizine 12.5 mg tablet
12.5 mg PO Q8HPRN PRN (Reason: dizziness)
cefdinir 300 mg capsule
300 mg PO BID Qty: 14 0RF
Premarin 0.625 mg/gram cream
1 applic vaginal THSA
Referrals:
Heather Rojas DO [Family Provider] -
Interventions
Interventions:
*Risk Screen - Suicide Last Done: 12/01/23 19:15
*General Assessment Last Done: 12/01/23 19:15
*Neglect/Abuse Screening Last Done: 12/01/23 19:15
ED- Fall Risk Assessment Last Done: 12/01/23 19:15
*ED COVID-19 Vaccine History Last Done: 12/01/23 11:42
ED- Cardiac Assessment Last Done: 12/01/23 19:15
ED- Neurological Assessment Last Done: 12/01/23 19:15
ED- Pulmonary Assessment Last Done: 12/01/23 19:15
Discharge Date and Time
Print Language: OCCITAN
[2023-12-01 19:13] VITALS: BP 162/89
[2023-12-01 20:00] VITALS: BP 161/93
[2023-12-01 21:00] VITALS: BP 141/89
[2023-12-01] MEDS: LEVAQUIN 100 IV (21:20)
--- NOTE | 2023-12-01 21:32 | HPS.HSE ---
Family Physician
-
Family Physician: Monisha Rojas DO
Chief Complaint
-
fatigue
History of Present Illness
73-year-old female with past medical history of frequent UTIs, history of obstructive ureteral stone and R pyelonephritis, hypertension, diabetes, restless leg syndrome, hyperlipidemia, overactive bladder, depression, presenting for fatigue since
discharge.
Patient was admitted from 11/25 to 11/27 urinary tract infection symptoms. She had CT imaging showing 1.3 cm calculus at the left uteropelvic junction with left perinephric stranding. She was started on antibiotics and seen by urology and underwent
stenting.
After she had stent placed she had some blood in the urine but this cleared up. Today again she noticed blood in the urine. She denies any cloudy urine or pain with urination but is had some increased frequency. Denies fevers or chills. Denies
nausea or vomiting. Denies any abdominal pain or flank pain.
Medical History
Past Medical History
Past Medical History: Reports Other (frequent UTIs, history of obstructive ureteral stone and R pyelonephritis, hypertension, diabetes, restless leg syndrome, hyperlipidemia, overactive bladder, depression)
Past Surgical History: Reports Other (Gynecological (Hysterectomy ) and Orthopedic (Right knee replacement ))
Social History
Tobacco: Non-smoker
Alcohol: Occasional
Drug: None
Family History
Family History: Not pertinent
Allergies / Home Medications
Allergies reflects when Allergies were last updated in [facility].
Home Medications with original date entered in [facility]
Allergy/Medication List:
Allergies
Allergy/AdvReac Type Severity Reaction Status Date / Time
morphine Allergy NAUSEA/VOMI Verified 12/01/23 11:44
TING
Home Medications
aspirin 81 mg tablet,delayed release 81 mg PO QPM Blood Clot Prevention/Tx 10/24/18
duloxetine 30 mg capsule,delayed release 30 mg PO BID Mental Health/Anxiety 03/16/23
metformin 500 mg tablet 500 mg PO BID Diabetes 03/16/23
mirabegron 50 mg tablet,extended release 24 hr (Myrbetriq) 50 mg PO QPM Urinary Issue 03/16/23
ascorbic acid (vitamin C) 500 mg tablet (Vitamin C) 500 mg PO QPM Supplement 04/04/23
glucosamine sulf dipot chlr,msm,chond 550 mg-C 30 mg-baldo 1 mg capsule (Glucosamine Chondroitin) 1 cap PO QPM Supplement 04/04/23
multivitamin 1 tab PO DAILY Supplement 04/04/23
melatonin 10 mg tablet 10 mg PO HS PRN sleep 04/10/23
meloxicam 15 mg tablet 15 mg PO DAILY Pain 04/10/23
acetaminophen 300 mg-codeine 30 mg tablet 1 tab PO BIDPRN PRN moderate pain 05/30/23
gabapentin 600 mg tablet 900 mg PO HS Neurological Condition 05/30/23
simvastatin 40 mg tablet 40 mg PO QPM High Cholesterol 05/30/23
cranberry fruit 400 mg tablet 400 mg PO QPM Supplement 11/26/23
lisinopril 5 mg tablet 5 mg PO DAILY Blood Pressure 11/26/23
meclizine 12.5 mg tablet 12.5 mg PO Q8HPRN PRN dizziness 11/26/23
semaglutide 1 mg/dose (4 mg/3 mL) subcutaneous pen injector (Ozempic) 1 mg SC FR weight loss 11/26/23
cefdinir 300 mg capsule 300 mg PO BID Infection #14 caps 11/28/23
conjugated estrogens 0.625 mg/gram vaginal cream (Premarin) 1 applic vaginal THSA 12/01/23
Review of Systems
-
History Source: Patient
A 12 point ROS was completed and negative except as noted: Yes
Constitutional: Reports No Symptoms
EENT: Reports No Symptoms
Respiratory: Reports No Symptoms
Cardiac: Reports No Symptoms
Abdomen/GI: Reports See HPI
: Reports See HPI
Musculoskeletal: Reports No Symptoms
Skin: Reports No Symptoms
Neurological: Reports No Symptoms
Endocrine: Reports No Symptoms
Hematologic/Lymphatic: Reports No Symptoms
Psych: Reports No Symptoms
Physical Exam
Vital Signs
Vital Signs
Temp Pulse Resp BP Pulse Ox
97.9 F 76 19 141/89 97
12/01/23 15:32 12/01/23 19:51 12/01/23 19:51 12/01/23 21:00 12/01/23 21:01
Physical Exam
General: Well Developed, Well Nourished and No Apparent Distress
HEENT: NormoCephalic, Moist mucous membranes and Atraumatic
Respiratory: Clear
Cardiac: S1/S2 and Regular Rhythm; No Murmur or Rub
GI: Soft, Non Tender, Non Distended and Normal Bowel Sounds; No Organomegaly
Rectal: Deferred by Provider
Musculoskeletal: No Clubbing, No Cyanosis and No Edema
Skin: No Rash
Neuro: Nonfocal/grossly intact
Laboratory Results
-
12/01/23 12:07
12/01/23 12:07
Laboratory Results
Lactic Acid 1.7 mmol/L (0.7-2.0) 12/01/23 12:07
Total Bilirubin 0.6 mg/dl (0.2-1.3) 12/01/23 12:07
AST 88 U/L (14-36) H 12/01/23 12:07
ALT 74 U/L (0-35) H 12/01/23 12:07
Alkaline Phosphatase 96 U/L (38-126) 12/01/23 12:07
Data Reviewed
-
Lab Data: Labs Reviewed by me
Old Records: Reviewed
Impression/Plan
-
IMPRESSION:
PLAN:
# Persistent UTI
# Recent left ureteropelvic junction infected calculus with associated perinephric stranding status post stent
-UA indicative of infection
-Check urine culture, blood cultures
-1 dose of gentamicin
-Levaquin
-N.p.o. past midnight
-Urology may take to the OR tomorrow
# Transaminitis likely secondary to cefdinir
-Hold statin
Overactive bladder
-Continue Myrbetriq
Essential hypertension
-Continue lisinopril
-Hold prophylactic aspirin
History of dizziness/orthostatic hypotension
-Continue meclizine
Restless leg syndrome
History of arthralgias
-Continue meloxicam, gabapentin
Type 2 diabetes
-Hold metformin
-Insulin sliding scale
Hyperlipidemia
Anxiety/depression
-Continue duloxetine
Full code
DVT prophylaxis�SCDs
N.p.o. past midnight
[2023-12-01] MEDS: ZOFRAN 4 MG IV (21:53)
[2023-12-01] MEDS: GENTAMICIN 55 MG IV (22:29)
--- NOTE | 2023-12-01 22:43 | CONS.URO ---
Consultation
-
Date/Time Consultation Performed: 12/01/23 2300
Performing Provider: Clifton
Reason for Consultation: left renal stones + UTI
Medical History
History of Present Illness
11/26/2023 taken to OR by Dr Ashraf for placement of left ureteral stent to alleviate obstruction by a 1.3 cm renal pelvic stone; numerous lower pole stones on left with concurrent evidence of UTI
Shw returned to the ED due to 'feeling weak and tired'
Past Medical History
Past Medical History: Other (UTIs, recurrent nephrolithiasis, hypertension, diabetes, restless leg syndrome, hyperlipidemia, overactive bladder, depression)
Past Surgical History: Other (Hysterectomy, Right knee replacement, Ureteroscopy with Laser Lithotripsy)
Family History
Family History: Reviewed & Not Pertinent
Allergies/Home Medications
Allergies
Allergy/AdvReac Type Severity Reaction Status Date / Time
morphine Allergy NAUSEA/VOMI Verified 12/01/23 11:44
TING
Home Medications
�Medication �Instructions �Recorded �Confirmed �Type
aspirin 81 mg tablet,delayed 81 mg PO QPM Blood Clot 10/24/18 12/01/23 History
release Prevention/Tx
duloxetine 30 mg capsule,delayed 30 mg PO BID Mental Health/Anxiety 03/16/23 12/01/23 History
release
metformin 500 mg tablet 500 mg PO BID Diabetes 03/16/23 12/01/23 History
mirabegron 50 mg tablet,extended 50 mg PO QPM Urinary Issue 03/16/23 12/01/23 History
release 24 hr (Myrbetriq)
ascorbic acid (vitamin C) 500 mg 500 mg PO QPM Supplement 04/04/23 12/01/23 History
tablet (Vitamin C)
glucosamine sulf dipot 1 cap PO QPM Supplement 04/04/23 12/01/23 History
chlr,msm,chond 550 mg-C 30 mg-baldo
1 mg capsule (Glucosamine
Chondroitin)
multivitamin 1 tab PO DAILY Supplement 04/04/23 12/01/23 History
melatonin 10 mg tablet 10 mg PO HS PRN sleep 04/10/23 12/01/23 History
meloxicam 15 mg tablet 15 mg PO DAILY Pain 04/10/23 12/01/23 History
acetaminophen 300 mg-codeine 30 mg 1 tab PO BIDPRN PRN moderate pain 05/30/23 12/01/23 History
tablet
gabapentin 600 mg tablet 900 mg PO HS Neurological Condition 05/30/23 12/01/23 History
simvastatin 40 mg tablet 40 mg PO QPM High Cholesterol 05/30/23 12/01/23 History
cranberry fruit 400 mg tablet 400 mg PO QPM Supplement 11/26/23 12/01/23 History
lisinopril 5 mg tablet 5 mg PO DAILY Blood Pressure 11/26/23 12/01/23 History
meclizine 12.5 mg tablet 12.5 mg PO Q8HPRN PRN dizziness 11/26/23 12/01/23 History
semaglutide 1 mg/dose (4 mg/3 mL) 1 mg SC FR weight loss 11/26/23 12/01/23 History
subcutaneous pen injector (Ozempic)
cefdinir 300 mg capsule 300 mg PO BID Infection #14 caps 11/28/23 12/01/23 Rx
conjugated estrogens 0.625 mg/gram 1 applic vaginal THSA 12/01/23 12/01/23 History
vaginal cream (Premarin)
Review of Systems
-
Constitutional: Reports Fatigue
Respiratory: Reports No Symptoms
Cardiac: Reports No Symptoms
: Reports Frequency
Skin: Reports No Symptoms
Neurological: Reports No Symptoms
Psych: Reports No Symptoms
Physical Exam
Vital Signs
Vital Signs
Temp Pulse Resp BP Pulse Ox
97.9 F 76 19 141/89 96
12/01/23 15:32 12/01/23 22:37 12/01/23 22:37 12/01/23 21:00 12/01/23 22:37
Lab / Testing Results
Laboratory Results
12/01/23 12:07
12/01/23 12:07
Physical Exam
adult female on ED bed
General: No Apparent Distress
HEENT: Normocephalic
GI: Soft
Genito-urinary: No Costovertebral Tend
Skin: Warm
Neuro: Awake, Alert and Oriented
Psych: Calm
Assessment / Plan
-
Left Renal Pelvic and numerous lower pole stones s/p recent Ureteral Stenting
no urgency for additional uro-surgical intervention
d/w Dr Ashraf -- posted for OR 12/03
Data Reviewed
-
CT Scan: Image personally visualized and interpreted
Old Records: Reviewed
[2023-12-01 23:37] VITALS: BP 164/85
[2023-12-02] MEDS: NEURONTIN 900 MG PO ×2 (00:06→22:25)
[2023-12-02] MEDS: MELATONIN 10 MG PO ×2 (00:06→22:25)
[2023-12-02] MEDS: NSS 1000 IV ×3 (00:11→18:13)
[2023-12-02] MEDS: TYLENOL 650 MG PO (07:28)
[2023-12-02 08:41] LABS: Glucose - Point of Care 135 mg/dl (70-99)
[2023-12-02 08:42] VITALS: BP 165/77
[2023-12-02] MEDS: NOVOLOG FLEXPEN-LOW RESISTANCE SC ×3 (08:43→18:21)
[2023-12-02] MEDS: CYMBALTA DELAYED RELEASE 30 MG PO ×2 (08:50→20:42)
[2023-12-02] MEDS: ZESTRIL 5 MG PO (08:50)
[2023-12-02] MEDS: MOBIC 15 MG PO (08:50)
[2023-12-02] MEDS: THERAGRAN 1 TABLET PO (08:51)
[2023-12-02 11:51] LABS: Glucose - Point of Care 127 mg/dl (70-99)
[2023-12-02 12:13] VITALS: BMI 34.5
--- NOTE | 2023-12-02 12:21 | W.PN.HOSP.TC ---
Today's Communication/Plan
-
Continue with antibiotics
Follow culture data
OR planned for 12/03
Assessment / Plan
Assessment / Plan
# Persistent UTI
# Recent left ureteropelvic junction infected calculus with associated perinephric stranding status post stent
-UA indicative of infection
-CT of the abdomen pelvis shows persistent calculus at the left ureteropelvic junction with mild left renal collecting system dilatation with is also moderate left perinephric stranding all compatible with partial obstructive uropathy. Creatinine
is okay.
-Cannot rule out acute pyelonephritis based on the imaging and persistence of nonspecific infective symptoms
-Check urine culture, blood cultures
-1 dose of gentamicin
-Continue with Levaquin
- plans for urological intervention for 12/03 noted
# Transaminitis likely secondary to cefdinir
-Hold statin
Overactive bladder
-Continue Myrbetriq
Essential hypertension
-Continue lisinopril
-Hold prophylactic aspirin
History of dizziness/orthostatic hypotension
-Continue meclizine
Restless leg syndrome
History of arthralgias
-Continue meloxicam, gabapentin
Type 2 diabetes
-Hold metformin
-Insulin sliding scale
Hyperlipidemia
Anxiety/depression
-Continue duloxetine
Full code
DVT prophylaxis�SCDs
N.p.o. past midnight
Anticipated Discharge: > 48 hours
Subjective/Interval History
-
Date of Service: December 02, 2023
Fatigue and weakness was a major symptom before coming to the hospital.
Denies any nausea vomiting. She was feeling hot and cold but no fevers recorded at home.
Denies any flank pain or abdominal pain. When she arrived in the ER she had hematuria but not at home. No dysuria.
Objective Data
-
Vital Signs:
Vital Signs
Temp Pulse Resp BP Pulse Ox
97.9 F 95 19 165/77 99
12/01/23 15:32 12/02/23 08:42 12/02/23 08:42 12/02/23 08:50 12/02/23 08:42
Review of Systems
-
Respiratory: Denies Trouble Breathing
Cardiac: Denies Chest Pain
Neuro: Denies Dizzy
Physical Exam
-
General: No Apparent Distress
HEENT: Moist Mucous Membranes
Respiratory: Clear to Auscultation
Cardiac: Regular Rhythm, S1/S2 and Tachycardic
GI: Soft, Nontender, Nondistended and Normal Bowel Sounds
Genito-urinary: No Costovertebral Tender
Neuro: AO x 3
Data Reviewed
-
Labs: Labs Reviewed by me
[2023-12-02] MEDS: IMODIUM 2 MG PO (16:06)
[2023-12-02 16:59] VITALS: BP 162/91
[2023-12-02 17:00] VITALS: BMI 35.4
[2023-12-02 18:18] LABS: Glucose - Point of Care 106 mg/dl (70-99)
[2023-12-02] MEDS: DETROL LA 4 MG PO (18:21)
[2023-12-02] MEDS: LEVAQUIN 150 IV (20:41)
[2023-12-02 21:15] LABS: Glucose - Point of Care 189 mg/dl (70-99)
[2023-12-02 23:21] VITALS: BP 155/98
[2023-12-03] MEDS: NSS 1000 IV (05:59)
[2023-12-03 07:28] LABS: Glucose - Point of Care 130 mg/dl (70-99)
[2023-12-03 07:35] VITALS: BP 143/85
[2023-12-03 08:09] LABS: Hemoglobin 13.1 g/dL (12.0-16.0); Mean Corp Hgb Conc. 32.8 g/dL (33.0-37.0); Mean Corpuscular Hgb 29.7 pg (27.0-31.0); Mean Corpuscular Volume 90.7 fL (81.0-99.0); Mean Platelet Volume 10.9 fL (7.4-10.4); Platelet Count 232 10^3/uL (130-400); Red Blood Cell Count 4.41 10^6/uL (4.20-5.40); Red Cell Dist. Width 13.1 % (11.5-14.5); White Blood Cell Count 9.9 10^3/uL (4.8-10.8)
[2023-12-03 08:27] LABS: Blood Urea Nitrogen 19 mg/dl (7-17); Carbon Dioxide 23 mmol/L (22-30); Chloride 109 mmol/L (98-107); Estimated Creatinine Clearance 90 ml/min; Glucose 134 mg/dl (70-99); Potassium 4.5 mmol/L (3.5-5.1); Sodium 140 mmol/L (135-145); eGFR > 60.00
[2023-12-03] MEDS: NOVOLOG FLEXPEN-LOW RESISTANCE SC ×2 (08:33→16:31)
[2023-12-03] MEDS: MOBIC 15 MG PO (08:33)
[2023-12-03] MEDS: THERAGRAN 1 TABLET PO (08:34)
[2023-12-03] MEDS: CYMBALTA DELAYED RELEASE 30 MG PO ×2 (08:34→20:57)
[2023-12-03] MEDS: ZESTRIL 5 MG PO (08:34)
--- NOTE | 2023-12-03 10:24 | CM ---
Patient seen bedside.
IA completed.
Patient lives with boyfriend Anthony in a 2 story home with 2 steps to enter.
Bed and bath on second floor with powder room on the first.
Patient independent prior to admission without assistive devices, patient drives.
Patient has had [facility] and [facility] in the past.
PCP: Dr Rojas
Pharmacy: [facility] [address]
Plan: home no needs anticiapted.
[2023-12-03 11:32] LABS: Glucose - Point of Care 151 mg/dl (70-99)
[2023-12-03] MEDS: NOVOLOG FLEXPEN-LOW RESISTANCE 1 UNITS SC (12:38)
--- NOTE | 2023-12-03 14:36 | W.PN.HOSP.TC ---
Today's Communication/Plan
-
Consult ID
CW Levaquin
Follow urology plan on cystoscopy
Assessment / Plan
Assessment / Plan
# Persistent UTI -categorize it as complicated .
# Recent left ureteropelvic junction infected calculus with associated perinephric stranding status post stent
-UA indicative of infection
- UCx - GNB and yeast . With recent instrumentation and stent in place will have to consider anti candidal tx .Consult ID
-CT of the abdomen pelvis shows persistent calculus at the left ureteropelvic junction with mild left renal collecting system dilatation with is also moderate left perinephric stranding all compatible with partial obstructive uropathy. Creatinine
is okay.
-Cannot rule out acute pyelonephritis based on the imaging and persistence of nonspecific infective symptoms
-Continue with Levaquin
- plans for urological intervention for 12/03 noted
# Transaminitis likely secondary to cefdinir
-Hold statin
Overactive bladder
-Continue Myrbetriq
Essential hypertension
-Continue lisinopril
-Hold prophylactic aspirin
History of dizziness/orthostatic hypotension
-Continue meclizine
Restless leg syndrome
History of arthralgias
-Continue meloxicam, gabapentin
Type 2 diabetes
-Hold metformin
-Insulin sliding scale
Hyperlipidemia
Anxiety/depression
-Continue duloxetine
Full code
DVT prophylaxis�SCDs
Anticipated Discharge: > 48 hours
Subjective/Interval History
-
Date of Service: December 03, 2023
Feels stronger. Voicing no specific complaints today.
Denies any nausea vomiting, abdominal pain or flank pain.
No fever or chills.
Objective Data
-
Labs:
Laboratory Results
12/03/23
06:53
WBC 9.9
Hgb 13.1
Hct 40.0
Plt Count 232
Sodium 140
Potassium 4.5
Chloride 109 H
Carbon Dioxide 23
BUN 19 H
Creatinine 0.6
Glucose 134 H
Calcium 9.0
Vital Signs:
Vital Signs
Temp Pulse Resp BP Pulse Ox
98.4 F 96 18 143/85 98
12/03/23 07:35 12/03/23 07:35 12/03/23 07:35 12/03/23 07:35 12/03/23 07:35
I&O
12/02/23 12/03/23 12/04/23
06:59 06:59 06:59
Intake Total 1959 / 1959
Output Total 350 / 350
Balance 1610 / 1610
Review of Systems
-
Respiratory: Denies Trouble Breathing
Cardiac: Denies Chest Pain
Neuro: Denies Dizzy
Physical Exam
-
General: No Apparent Distress
HEENT: Moist Mucous Membranes
Respiratory: Clear to Auscultation
Cardiac: Regular Rhythm and S1/S2
Genito-urinary: No Costovertebral Tender
Neuro: AO x 3
Psych: Calm
Data Reviewed
-
Labs: Labs Reviewed by me
[2023-12-03 15:10] VITALS: BP 146/80
--- NOTE | 2023-12-03 16:06 | CON.ID ---
Consultation
-
Date/Time Consultation Requested: 12/03/2023 1440
Date/Time Consultation Performed: 12/03/2023 1600
Requesting Provider: Dr. Flynn
Performing Provider: Dr. Jane
Reason for Consultation: Complicated urinary tract infection
Chief Complaint / Past History
History of Present Illness
Rayna Ugalde is a 73-year-old female being evaluated at the request of Dr. Flynn in regards to a complicated urinary tract infection. History is obtained from chart review, along with patient interview.
The patient has a significant past medical history of nephrolithiasis, and reports that she recently underwent stent placement in late October for obstructive uropathy. She was initially on ceftriaxone, but discharged on a course of cefdinir. She
reports on the third day of being home she developed significant nausea along with dizziness and generalized lethargy. She stopped the cefdinir, believing that it may be causing some of her issues, and came to the hospital the next day because she
continued to feel ill. She notes that while she was in the ER she had some return of her hematuria but this has since resolved. Since discharge, she has not had any fevers or chills. She denies any dysuria. Repeat urinary cultures have revealed
the presence of organisms, and Infectious Diseases is asked to comment upon further antimicrobial therapy.
Past History
Additional Past Medical History:
HTN
Dyslipidemia
DM
Nephrolithiasis
Additional Past Surgical History:
LUCRECIA
Right TKA
Allergy History:
morphine Allergy (Verified 12/01/23 11:44)
NAUSEA/VOMITING
Medications Reviewed: Yes
Current Antibiotics:
Levofloxacin 750 mg IV every 24 hours
Social History
Tobacco: Former Smoker
Alcohol: Occasional
Drug: None
Living: With Family
Employment: Retired
Family History
Family History: Not Pertinent
Review of Systems
Vital Signs
Temp Pulse Resp BP Pulse Ox
98.6 F 101 18 146/80 98
12/03/23 15:10 12/03/23 15:10 12/03/23 15:10 12/03/23 15:10 12/03/23 15:10
Physical Exam
Physical Exam
Constitutional: No Acute Distress, Comfortable and Non-toxic
Head: Normocephalic
Eyes: Pupils Equal, Pupils Round, No Conjunctival Hemorrhage and Sclera Anicteric
Oral: No Thrush and No Ulcers
Cardiovascular: S1/S2; Negative S3/S4 or Murmur
Pulmonary: Clear; Negative Wheezes, Rales or Rhonchi
Gastrointestinal: Soft, Non Tender, Non Distended, Normal Bowel Sounds, No Rebound and No Guarding
Genito-Urinary: Negative Pham, Suprapubic Tenderness or CVA Tenderness
Extremities: Negative Edema, Cyanosis or Erythema
Skin: Warm and Dry; Negative Rash or Jaundice
Neurological: Awake and Alert; Negative Oriented or AO x 3
Psychological: Calm
Lab / Diagnostic Study Results
12/03/23 06:53
12/03/23 06:53
Abs Immat Gran (auto) 0.1 10^3/uL (0-0.05) H 12/01/23 12:07
Absolute Neuts (auto) 6.2 10^3/uL (1.4-6.5) 12/01/23 12:07
Absolute Lymphs (auto) 1.3 10^3/uL (1.2-3.4) 12/01/23 12:07
Absolute Monos (auto) 0.6 10^3/uL (0.1-0.6) 12/01/23 12:07
Absolute Basos (auto) 0.0 10^3/uL (0-0.2) 12/01/23 12:07
Immature Gran % 0.6 % (0-0.5) H 12/01/23 12:07
Neutrophils % 74.2 % (42.2-75.2) 12/01/23 12:07
Lymphocytes % 15.6 % (20.5-51.1) L 12/01/23 12:07
Monocytes % 7.2 % (1.7-9.3) 12/01/23 12:07
Eosinophils % 1.9 % (0-6) 12/01/23 12:07
Basophils % 0.5 % (0-2) 12/01/23 12:07
Lactic Acid 1.7 mmol/L (0.7-2.0) 12/01/23 12:07
Ur Squamous Epith Cells >30 /LPF (Few) 12/01/23 12:07
Microbiology Results
Micro:
12/01/23 12:07 Blood Culture - Preliminary
Blood/Venous No Growth in 48 hours- Final report to follow
12/01/23 12:07 Urine Culture - Final
Urine Yeast : 15K cfu/mL
Gram negative bacilli : 3k cfu/mL
Additional testing on request
Imaging:
11/26/2023 CT abdomen/pelvis without contrast: Approximate 1.3 cm calculus at the left ureteropelvic junction with mild left renal collecting system dilatation and moderate left perinephric stranding compatible with partial obstructive uropathy.
Additional small nonobstructing left renal calculi.
Assessment / Plan
Bacteriuria
Nausea/dizziness/lethargy; possible cefdinir ADRs
Nephrolithiasis with obstructive uropathy
-S/p recent cystoscopy and stent placement
HTN
Dyslipidemia
DM
Recommendations:
Prior cultures reviewed; cultures from 11/25 with polymicrobial and not additionally worked up.
Current urine cultures reviewed, and are of minimal colony count. Additionally, the urinalysis revealed significant squamous cells indicating a contaminated urine.
Continue with levofloxacin for the present. Transition to the oral route.
Continue to follow white count and temperature curve.
Will continue to follow clinically.
[2023-12-03 16:18] LABS: Glucose - Point of Care 137 mg/dl (70-99)
[2023-12-03] MEDS: LEVAQUIN 750 MG PO (16:31)
[2023-12-03] MEDS: DETROL LA 4 MG PO (17:04)
[2023-12-03] MEDS: MELATONIN 10 MG PO (20:57)
[2023-12-03] MEDS: NEURONTIN 900 MG PO (20:57)
[2023-12-03 21:06] LABS: Glucose - Point of Care 145 mg/dl (70-99)
[2023-12-03 23:10] VITALS: BP 151/88
[2023-12-04] VITALS (9 sets, daily range): BP systolic 124–164; BP diastolic 63–119
[2023-12-04 07:14] LABS: Glucose - Point of Care 123 mg/dl (70-99)
--- NOTE | 2023-12-04 08:37 | PN.CDI ---
CDI
- -
CDI:
Physician Documentation Request
Admit Date: 12/01/23 22:20
Dear Doctor Leona,
Pt admitted with UTI
11/26 Pt had left ureteral stent placed
Please clarify if a relationship exist between these conditions:
Yes, UTI is related to/associated with/due to Ureteral stenting.
No, UTI is not related to/associated with/due to Ureteral stenting
Other
Unable to determine
Use of terms such as suspected, likely, concern for, or probable (associated with a specific diagnosis that is being evaluated, monitored, or treated as if it exists) are acceptable and can be coded in the inpatient setting, when documented at the
time of discharge.
Thank you,
Enedina Downs RN, BSN
CDI Specialist
Available via [employer]
Please use your independent medical judgment in providing your response.
--- NOTE | 2023-12-04 08:47 | W.PN.UPDATE ---
Update Note
Progress Note Update
Maintain NPO status
Continue IV antibiotics per Cx S/S
To OR this afternoon for left URS/LL/stone extraction/stent exchange
D/w RN.
[2023-12-04] MEDS: NOVOLOG FLEXPEN-LOW RESISTANCE SC ×3 (08:49→18:00)
[2023-12-04] MEDS: THERAGRAN PO (08:50)
[2023-12-04] MEDS: CYMBALTA DELAYED RELEASE 30 MG PO ×2 (09:02→21:00)
[2023-12-04] MEDS: ZESTRIL 5 MG PO (09:02)
[2023-12-04] MEDS: MOBIC 15 MG PO (09:02)
--- NOTE | 2023-12-04 11:12 | W.PN.HOSP.TC ---
Addendum entered and electronically signed by Roni Delgadillo MD 12/04/23 13:52:
Yes UTI in relation to patient's stent
Original Note:
Today's Communication/Plan
-
For p.m. scheduled left URS/LL/stone extraction/stent exchange
Continue Levaquin
Recheck LFTs
Assessment / Plan
Assessment / Plan
# Persistent UTI -categorize it as complicated .
# Recent left ureteropelvic junction infected calculus with associated perinephric stranding status post stent
-UA indicative of infection
- UCx - GNB and yeast . With recent instrumentation and stent in place will have to consider anti candidal tx .Consult ID/opinion was to continue Levaquin
-CT of the abdomen pelvis shows persistent calculus at the left ureteropelvic junction with mild left renal collecting system dilatation with is also moderate left perinephric stranding all compatible with partial obstructive uropathy. Creatinine
is okay.
-Cannot rule out acute pyelonephritis based on the imaging and persistence of nonspecific infective symptoms
-Continue with Levaquin
- plans for urological intervention for 12/03 noted / left URS/LL/stone extraction/stent exchange
# Transaminitis likely secondary to cefdinir
-Hold statin
Overactive bladder
-Continue Myrbetriq
Essential hypertension
-Continue lisinopril
-Hold prophylactic aspirin
History of dizziness/orthostatic hypotension
-Continue meclizine
Restless leg syndrome
History of arthralgias
-Continue meloxicam, gabapentin
Type 2 diabetes
-Hold metformin
-Insulin sliding scale
Hyperlipidemia
Anxiety/depression
-Continue duloxetine
Full code
DVT prophylaxis�SCDs
Anticipated Discharge: Within 24 hours
Subjective/Interval History
-
Date of Service: December 04, 2023
Denies any further diarrhea not much flank pain or suprapubic pain
Objective Data
-
Vital Signs:
Vital Signs
Temp Pulse Resp BP Pulse Ox
98.8 F 96 18 147/91 98
12/04/23 07:40 12/04/23 07:40 12/04/23 07:40 12/04/23 07:40 12/04/23 07:40
I&O
12/03/23 12/04/23 12/05/23
06:59 06:59 06:59
Intake Total 1960 / 1960 600 / 600
Output Total 350 / 350 1100 / 1100
Balance 1610 / 1610 -500 / -500
Review of Systems
-
History Source: Patient
All other systems: Reviewed and negative
Constitutional: Reports No Symptoms
Genitourinary: Reports Flank Pain
Physical Exam
-
General: Well Developed
HEENT: Normocephalic
Respiratory: Clear to Auscultation
Cardiac: Regular Rhythm
Genito-urinary: No Costovertebral Tender
Psych: Calm
Data Reviewed
-
Total Time Spent with Patient (in minutes): 45
Labs: Labs Reviewed by me
[2023-12-04 12:03] LABS: Glucose - Point of Care 128 mg/dl (70-99)
--- NOTE | 2023-12-04 12:46 | W.SUR.PREOP ---
Addendum entered and electronically signed by Robert Ashraf MD 12/04/23 13:16:
Patient seen, examined, marked (left side), consented in preop.
Urologic plan of care d/w patient.
Original Note:
Pre-Operative Surgical Note
-
I have examined this patient prior to the performance of the scheduled procedure.
The patient's condition is unchanged from the time of the current History and
Physical and the patient is able to undergo the scheduled procedure.
cUTI
Obstructing left UPJ stone s/p emergent stent placement 11/26
Suspected left pyelonephritis
On IV Levaquin per ID since admission
WBC wnl
Cr wnl
- To OR this afternoon for left URS/LL/stone extraction/stent exchange
- Continue IV Levaquin
- Surgical consent to be signed in preop
--- NOTE | 2023-12-04 13:17 | CM ---
Addendum entered by Rayna Morales 12/04/23 16:42:
IMM completed.
Plan: home no needs.
Original Note:
Plan: OR today for left stone.
Follow post op.
--- NOTE | 2023-12-04 14:10 | W.IMMPOSTOP ---
Surgical Immed Post Op Note
-
Primary Surgeon: Pascale
Pre-op Diagnosis: cUTI + obstructive uropathy (massive left UPJ stone) s/p stent placement 11/26
Post-op Diagnosis: Same
Procedure Performed: left URS/LL/stone extraction/stent exchange
Anesthesia Type: LMA
Specimen / Cultures: Stones for analysis/None
Estimated Blood Loss: Negligible
Drains: 6Fr x 24 cm JJ left ureteral stent
Complications: None
Operative Findings: Final KUB and cysto confirming excellent stent position. Urine debris markedly cleared since initial emergent procedure 11/26. Satisfactory fragmentation of 1.3 cm left UPJ and left lower pole renal stones via laser lithotripsy.
[2023-12-04 14:28] LABS: Glucose - Point of Care 97 mg/dl (70-99)
[2023-12-04] MEDS: Pyridium 200 MG PO (14:46)
[2023-12-04] MEDS: DETROL LA 4 MG PO (14:46)
[2023-12-04 17:09] LABS: Glucose - Point of Care 136 mg/dl (70-99)
[2023-12-04] MEDS: NEURONTIN 900 MG PO (20:59)
[2023-12-04] MEDS: MELATONIN 10 MG PO (21:02)
[2023-12-04] MEDS: TYLENOL 650 MG PO (21:07)
[2023-12-04 21:16] LABS: Glucose - Point of Care 251 mg/dl (70-99)
--- NOTE | 2023-12-04 22:12 | PTCARENOTE ---
Assumed care of pt from previous nurse. Pt with mild discomfort to b/l legs due to arthritis, tylenol given with positive results. Pt call gross is within reach, pt rings mar. will cont to monitor.
[2023-12-05 07:00] VITALS: BP 126/94
[2023-12-05 07:31] LABS: Glucose - Point of Care 156 mg/dl (70-99)
[2023-12-05 08:27] LABS: Hematocrit 40.7 % (37.0-47.0); Hemoglobin 13.4 g/dL (12.0-16.0); Mean Corp Hgb Conc. 32.9 g/dL (33.0-37.0); Mean Corpuscular Volume 91.3 fL (81.0-99.0); Mean Platelet Volume 11.2 fL (7.4-10.4); Platelet Count 217 10^3/uL (130-400); Red Blood Cell Count 4.46 10^6/uL (4.20-5.40); White Blood Cell Count 27.2 10^3/uL (4.8-10.8)
[2023-12-05 09:23] LABS: ALT (SGPT) 53 U/L (0-35); AST (SGOT) 46 U/L (14-36); Albumin 3.9 g/dl (3.5-5.0); Alkaline Phosphatase 81 U/L (38-126); Blood Urea Nitrogen 21 mg/dl (7-17); Calcium 9.9 mg/dl (8.4-10.2); Carbon Dioxide 26 mmol/L (22-30); Chloride 102 mmol/L (98-107); Estimated Creatinine Clearance 67 ml/min; Glucose 141 mg/dl (70-99); Potassium 4.4 mmol/L (3.5-5.1); Sodium 138 mmol/L (135-145); Total Bilirubin 0.7 mg/dl (0.2-1.3); Total Protein 6.1 g/dl (6.3-8.2); eGFR > 60.00
[2023-12-05] MEDS: CYMBALTA DELAYED RELEASE 30 MG PO (09:26)
[2023-12-05] MEDS: NOVOLOG FLEXPEN-LOW RESISTANCE 1 UNITS SC (09:26)
[2023-12-05] MEDS: ZESTRIL 5 MG PO (09:26)
[2023-12-05] MEDS: MOBIC 15 MG PO (09:26)
[2023-12-05] MEDS: THERAGRAN 1 TABLET PO (09:26)
--- NOTE | 2023-12-05 10:32 | W.PN.UPDATE ---
Update Note
Progress Note Update
Patient states she feels great' her restful night no reference of any fever chills flank pain or difficulty urinating initially was passing some blood and urine with some sediment now clearing/noted white count elevation 27,000 presumed reactive
will await infectious disease input urine cultures showed mix of yeast and no culture growth. Presumption will be short course of Levaquin and follow-up with urology regarding stent management. Will proceed with discharge plan for today after
cleared by infectious disease.
[2023-12-05 11:41] LABS: Glucose - Point of Care 248 mg/dl (70-99)
--- NOTE | 2023-12-05 12:12 | CM ---
Met with patient at bedside to discuss discharge plan
Plan: discharge to home today; no needs; granddaughter will provide ride home
--- NOTE | 2023-12-05 12:41 | W.PN.ID1 ---
Date of Service
Date of Service: December 05, 2023
Today's Communication
Continue with levofloxacin (d#3) to complete 7 days total.
Assessment / Plan
Bacteriuria
Nausea/dizziness/lethargy; possible cefdinir ADRs
Nephrolithiasis with obstructive uropathy
-S/p recent cystoscopy and stent placement
Leukocytosis
- suspect secondary to recent surgery. No focal findings of acute infectious process.
HTN
Dyslipidemia
DM
Recommendations:
Prior cultures reviewed; cultures from 11/25 with polymicrobial growth and not additionally worked up.
Current urine cultures reviewed, and are of minimal colony count. Additionally, the urinalysis revealed significant squamous cells indicating a contaminated urine.
Continue with levofloxacin (d#3) to complete 7 days total.
Consider outpatient follow-up of current leukocytosis.
Little more to offer from an Infectious Diseases standpoint.
Will see again at your request.
����������������������������������������������������������
Chief Complaint
-: Other (Obstructive uropathy.)
Subjective / Review of Systems
Review of Systems: No Fever, No Chills, No Diarrhea and No Dysuria
Vital Signs / Physical Exam
Vital Signs
Vital Signs
Temp Pulse Resp BP Pulse Ox
98.0 F 94 18 126/94 95
12/05/23 07:00 12/05/23 07:00 12/05/23 07:00 12/05/23 07:00 12/05/23 07:00
Physical Exam
Constitutional: No Acute Distress, Comfortable and Non-toxic
Eyes: Sclera Anicteric
Cardiovascular: S1/S2; Negative S3/S4
Pulmonary: Non Labored
Gastrointestinal: Soft, Non Tender and Non Distended
Genito-Urinary: Negative CVA Tenderness
Neurological: Awake and Alert
Psychological: Calm
Objective Data
Lab Data
Lab Results
12/05/23 07:17
12/05/23 07:17
Estimated Creat Clear 67 ml/min 12/05/23 07:17
Lactic Acid 1.7 mmol/L (0.7-2.0) 12/01/23 12:07
Total Bilirubin 0.7 mg/dl (0.2-1.3) 12/05/23 07:17
AST 46 U/L (14-36) H 12/05/23 07:17
ALT 53 U/L (0-35) H 12/05/23 07:17
Alkaline Phosphatase 81 U/L (38-126) 12/05/23 07:17
Most recent labs reviewed.
Micro Results:
12/01/23 12:07 Blood Culture - Preliminary
Blood/Venous No Growth in 4 days- Final report to follow
12/01/23 12:07 Urine Culture - Final
Urine Yeast
Gram negative bacilli
Additional testing on request
Imaging:
11/26/2023 CT abdomen/pelvis without contrast: Approximate 1.3 cm calculus at the left ureteropelvic junction with mild left renal collecting system dilatation and moderate left perinephric stranding compatible with partial obstructive uropathy.
Additional small nonobstructing left renal calculi.
[2023-12-05] MEDS: NOVOLOG FLEXPEN-LOW RESISTANCE SC (13:26)
--- NOTE | 2023-12-05 13:45 | W.DCSUMMARY ---
Discharge Summary
Discharge Data
Date of Admission: 12/01/23
Date of Discharge: 12/05/23
-
Pending Results: No
Hospital Course
This is a 73-year-old female who was recently admitted with a presentation of ureteral colic and was found to have a fairly large 1.2 cm urologic stone and was treated for a complicated UTI and sent home on cefdinir after obtaining culture results
she had been seen by urology during hospitalization and underwent a stent placement for her obstructive uropathy she subsequently developed some what she thought was a reaction to her antibiotic which had been cefdinir and coverage for her
ceftriaxone she had had during hospitalization with significant nausea dizziness and generalized lethargy stop the antibiotic course at that point believe that may be causing her symptoms and came to the hospital on this admission feeling still ill.
She had return of some hematuria during her ED evaluation she described at time of presentation on this admission that she had had no fever or chills. Repeat cultures were sent and on this occasion she was admitted and consultation was placed with
the infectious disease service along with urology. She was placed on empiric management now for complicated UTI on Levaquin IV
She was seen by the urology service who wanted to pursue a left ureteroscopic and lithotripsy of her large left-sided stone with stone extraction and stent exchange. Based on the previous CT imaging showing perinephric stranding there was also
suspicion for underlying pyelonephritis.
Repeat urine culture however was indeterminant with evidence of contaminants and low colony count
Patient underwent on 03 December a left ureteroscopic lithotripsy and stone extraction with stent exchange that was uncomplicated with final KUB and cystoscopic confirming excellent stent position after exchange urine debris was markedly cleared from
prior prior impression on 26 November noted satisfactory fragmentation of a 1.3 cm left UPJ stone with left lower pole renal stones via laser lithotripsy. With further recommendations from the ID service suggesting a full 7-day course of Levaquin she
will be discharged on 5 days schedule course of Levaquin 750 mg daily to be called into local pharmacy of note the patient was noted to have a significant leukocytosis in the post cystoscopic setting this morning of 27,000 felt to be reactive as the
patient is totally asymptomatic and feels well and this should be followed up in another week's time through her PCP should it remain significant elevated it is suggested to further follow-up with the ID service warranted with Dr. Jane as he
suggested. She is also been instructed to follow-up with urology service in regards to her stent management going forward.
Discharge Plan
-
Patient Disposition: Home (Routine Discharge)
Discharge Diagnosis/Procedures: Complicated urinary tract infection
Large left ureteral colic stone /status post ureteroscopic/lithotripsy/stent exchange
Leukocytosis
Diet: No restrictions
Activity: No restrictions
Driving Restrictions: As prior to admission
Blood Work: Repeat CBC next week at PCP
Referrals:
Ronn Lazo MD [Active] - in one to two weeks (Call office for follow-up)
Heather Rojas DO [Family Provider] - in one week (Should have follow-up CBC of leukocytosis after exchange of stent noted white cell count of 27,000 without symptom)
Prescriptions:
New
levofloxacin 750 mg Tablet
750 mg PO Q24H Qty: 5 0RF
Continued
aspirin 81 MG tablet,delayed release (DR/EC)
81 mg PO QPM
metformin 500 mg Tablet
500 mg PO BID
duloxetine 30 mg Capsule,Delayed Release(Dr/Ec)
30 mg PO BID
mirabegron [Myrbetriq] 50 mg Tablet Extended Release 24 Hr
50 mg PO QPM
multivitamin Tablet
1 tab PO DAILY
ascorbic acid (vitamin C) [Vitamin C] 500 mg Tablet
500 mg PO QPM
Glucosamine Chondroitin 550-30-1 mg Capsule
1 cap PO QPM
meloxicam 15 mg Tablet
15 mg PO DAILY
melatonin 10 mg Tablet
10 mg PO HS PRN (Reason: sleep)
gabapentin 600 mg Tablet
900 mg PO HS
acetaminophen-codeine 300-30 mg Tablet
1 tab PO BIDPRN PRN (Reason: moderate pain)
Patient Comments:
12/01/23: last filled 11/19/23, 60 tabs for 30 days from [facility]
simvastatin 40 mg Tablet
40 mg PO QPM
lisinopril 5 mg tablet
5 mg PO DAILY
cranberry fruit 400 mg Tablet
400 mg PO QPM
Ozempic 1 mg/dose (4 mg/3 mL) pen injector
1 mg SC FR
meclizine 12.5 mg tablet
12.5 mg PO Q8HPRN PRN (Reason: dizziness)
Premarin 0.625 mg/gram cream
1 applic vaginal THSA
Discontinued
cefdinir 300 mg capsule
300 mg PO BID Qty: 14 0RF
Discharge Orders:
Discharge Patient (As Directed); Ordered 12/05/23
Ordered By: Roni Delgadillo
Discharge Date and Time
Print Language: CITIZEN OF [place]
--- NOTE | 2023-12-05 13:51 | W.DS.TRANS ---
DC Summary - Medical Practitioners
-
Discharge Instructions:
Discharge Diagnosis/Procedures Complicated urinary tract infection
Large left ureteral colic stone /status post
ureteroscopic/lithotripsy/stent exchange
Leukocytosis
Diet No restrictions
Activity No restrictions
Driving Restrictions As prior to admission
Blood Work Repeat CBC next week at PCP
Instructions:
Stand-Alone Forms:
Changes to Home Medications: Yes
Discharge Medications:
DC Medications w/original date entered in [facility]
aspirin 81 mg tablet,delayed release 81 mg PO QPM Blood Clot Prevention/Tx 10/24/18
duloxetine 30 mg capsule,delayed release 30 mg PO BID Mental Health/Anxiety 03/16/23
metformin 500 mg tablet 500 mg PO BID Diabetes 03/16/23
mirabegron 50 mg tablet,extended release 24 hr (Myrbetriq) 50 mg PO QPM Urinary Issue 03/16/23
ascorbic acid (vitamin C) 500 mg tablet (Vitamin C) 500 mg PO QPM Supplement 04/04/23
glucosamine sulf dipot chlr,msm,chond 550 mg-C 30 mg-baldo 1 mg capsule (Glucosamine Chondroitin) 1 cap PO QPM Supplement 04/04/23
multivitamin 1 tab PO DAILY Supplement 04/04/23
melatonin 10 mg tablet 10 mg PO HS PRN sleep 04/10/23
meloxicam 15 mg tablet 15 mg PO DAILY Pain 04/10/23
acetaminophen 300 mg-codeine 30 mg tablet 1 tab PO BIDPRN PRN moderate pain 05/30/23
gabapentin 600 mg tablet 900 mg PO HS Neurological Condition 05/30/23
simvastatin 40 mg tablet 40 mg PO QPM High Cholesterol 05/30/23
cranberry fruit 400 mg tablet 400 mg PO QPM Supplement 11/26/23
lisinopril 5 mg tablet 5 mg PO DAILY Blood Pressure 11/26/23
meclizine 12.5 mg tablet 12.5 mg PO Q8HPRN PRN dizziness 11/26/23
semaglutide 1 mg/dose (4 mg/3 mL) subcutaneous pen injector (Ozempic) 1 mg SC FR weight loss 11/26/23
conjugated estrogens 0.625 mg/gram vaginal cream (Premarin) 1 applic vaginal THSA 12/01/23
levofloxacin 750 mg tablet 750 mg PO Q24H #5 tabs 12/05/23
Home Medication Changes
levofloxacin 750 mg tablet 750 mg PO Q24H #5 tabs 12/05/23
Pending Results: No
[2023-12-05 14:00] VITALS: BP 138/70
--- NOTE | 2023-12-05 14:14 | W.PN.UPDATE ---
Update Note
Progress Note Update
11/26: s/p cysto + left stent placement
12/03: s/p cysto + left URS/LL/stone extraction/stent exchange (large left UPJ stone and non-obstructing left lower pole renal stones)
Discharged home on PO Levaquin course (total 7 days) per ID.
Patient called this afternoon - office will call her to schedule cysto/stent removal within 1-2 business days (to be scheduled in ~2 weeks in office).
Patient voiced appreciation for update and plan of care.
[2023-12-09 13:21] LABS: Stone Analysis Mass 9 mg
== END 2023-12-05 14:38 | disposition home or self-care (01) | DRG 660 ==
LOC: 4 WEST ACU 22:20
PROVIDERS: Emergency Medicine; Internal Medicine; Surgery; ADMITTING PHYSICIAN Hospitalist; ATTENDING PHYSICIAN Internal Medicine; CONSULT PHYSICIAN Specialist; EMERGENCY PHYSICIAN Emergency Medicine; FAMILY PHYSICIAN Student in an Organized Health Care Education/Training Program; OTHER PHYSICIAN Internal Medicine Infectious Disease
PROC: 0TC18ZZ Extirpation of Matter from Left Kidney, Via Natural or Artificial Opening Endoscopic (ICD-10-PCS; 2023-12-04)
PROC: 0TC78ZZ Extirpation of Matter from Left Ureter, Via Natural or Artificial Opening Endoscopic (ICD-10-PCS; 2023-12-04)
PROC: 0T778DZ Dilation of Left Ureter with Intraluminal Device, Via Natural or Artificial Opening Endoscopic (ICD-10-PCS; 2023-12-04)
DX: T83.592A Infection and inflammatory reaction due to indwelling ureteral stent, initial encounter (principal); N20.2 Calculus of kidney with calculus of ureter; N39.0 Urinary tract infection, site not specified; E11.9 Type 2 diabetes mellitus without complications; I10 Essential (primary) hypertension; G25.81 Restless legs syndrome; F32.A Depression, unspecified; E89.0 Postprocedural hypothyroidism; N13.9 Obstructive and reflux uropathy, unspecified; Y73.2 Prosthetic and other implants, materials and accessory gastroenterology and urology devices associated with adverse incidents; N32.81 Overactive bladder; R74.01 Elevation of levels of liver transaminase levels; I95.1 Orthostatic hypotension; E78.5 Hyperlipidemia, unspecified; F41.9 Anxiety disorder, unspecified; M25.50 Pain in unspecified joint; Z96.651 Presence of right artificial knee joint; Z79.84 Long term (current) use of oral hypoglycemic drugs; Z79.890 Hormone replacement therapy; Z87.442 Personal history of urinary calculi; Z87.440 Personal history of urinary (tract) infections; Z87.891 Personal history of nicotine dependence; Z87.19 Personal history of other diseases of the digestive system; Z88.5 Allergy status to narcotic agent
CPT/HCPCS: 74018; 76000; 80048; 80053; 81003; 81015; 82365; 82962; 83605; 85025; 85027; 87040; 87086; 93005; 96365; 99285; C1769; C1894; C2617

== ENCOUNTER → 2023-12-25 15:42 | Outpatient (REF) | payer MEDICARE, OTHER, SELFPAY | LOC: HWRAD 15:42 | PROVIDERS: ATTENDING PHYSICIAN Student in an Organized Health Care Education/Training Program | DX: M79.604 Pain in right leg (principal) | CPT/HCPCS: 73502; 73552 ==

== ENCOUNTER → 2024-01-14 10:56 | Outpatient (REF) | payer MEDICARE, OTHER, SELFPAY | LOC: RAD 10:56 | PROVIDERS: ATTENDING PHYSICIAN Surgery; FAMILY PHYSICIAN Family Medicine | DX: N13.2 Hydronephrosis with renal and ureteral calculous obstruction (principal) | CPT/HCPCS: 76775 ==

== ENCOUNTER → 2024-07-29 19:27 | Outpatient (REF) | payer MEDICARE, OTHER, SELFPAY | LOC: WDC 19:27 | PROVIDERS: ATTENDING PHYSICIAN Family Medicine | DX: Z12.31 Encounter for screening mammogram for malignant neoplasm of breast (principal) | CPT/HCPCS: 77063; 77067 ==

== ENCOUNTER → 2025-04-20 13:40 | Outpatient (REF) | payer MEDICARE, OTHER, SELFPAY | LOC: RAD 13:40 | PROVIDERS: ATTENDING PHYSICIAN Surgery; FAMILY PHYSICIAN Family Medicine | DX: N20.0 Calculus of kidney (principal) | CPT/HCPCS: 76775 ==